=== PATIENT | male | born 1945 | race Caucasian/White ===

== ENCOUNTER → 2016-12-21 | Outpatient (CLI) | payer OTHER ==
[2013-12-14 10:19] VITALS: BP 146/73
[2016-12-21 05:39] LABS: HEMOGLOBIN A1C 7.5 % (4.5-6.2)
[2016-12-21 05:52] LABS: ALBUMIN 3.6 g/dL (3.4-5.0); BILIRUBIN,DIRECT 0.11 mg/dL (0-0.2); CALCIUM 9.6 mg/dL (8.5-10.1); CARBON DIOXIDE 29.4 mmol/L (21-32); CHOL/HDL RATIO 3.5 (0.0-5.0); CREATININE 1.86 mg/dL (0.70-1.30); PHOSPHORUS 3.4 mg/dL (2.6-4.7); T4 (THYROXINE) 9.7 ug/dL (4.7-13.3); TOTAL PROTEIN 6.8 g/dL (6.4-8.2); TOTAL PSA 1.38 ng/mL (0.13-4.0); TSH (3RD GENERATION) 4.153 uIU/mL (0.358-3.74)
[2016-12-21 06:15] LABS: BASOPHILS % (AUTO) 0.7 % (0.2-1.0); EOSINOPHILS % (AUTO) 0.8 % (0.9-2.9); HEMATOCRIT 41.4 % (42.0-54.0); HEMOGLOBIN 13.8 g/dL (13.5-18.0); LYMPHOCYTES # (AUTO) 1.3 X10^3/uL (1.3-2.9); LYMPHOCYTES % (AUTO) 22.1 % (21.0-51.0); MEAN CORPUSCULAR HEMOGLOBIN 28.4 pg (27.0-34.0); MEAN CORPUSCULAR HGB CONC 33.5 g/dL (33.0-35.0); MEAN CORPUSCULAR VOLUME 84.8 fL (80.0-100.0); MEAN PLATELET VOLUME 8.2 fL (7.4-11.0); MONOCYTES # (AUTO) 0.4 x10^3/uL (0.3-0.8); MONOCYTES % (AUTO) 7.5 % (0.0-13.0); NEUTROPHILS # (AUTO) 3.9 x10^3/uL (2.2-4.8); NEUTROPHILS % (AUTO) 68.9 % (42.0-75.0); PLATELET COUNT 152 X10^3/uL (150.0-450.0); RED BLOOD COUNT 4.87 X10^6/uL (4.7-6.0); RED CELL DISTRIBUTION WIDTH 15.3 % (11.6-16.5); WHITE BLOOD COUNT 5.7 X10^3/uL (3.6-10.0)
== END ==
LOC: LAB 04:39
PROVIDERS: ATTEND Internal Medicine
DX: I25.10 Atherosclerotic heart disease of native coronary artery without angina pectoris (principal); Z79.01 Long term (current) use of anticoagulants; Z79.899 Other long term (current) drug therapy; N18.3 Chronic kidney disease, stage 3 (moderate); Z94.0 Kidney transplant status; E11.9 Type 2 diabetes mellitus without complications; I10 Essential (primary) hypertension; E03.8 Other specified hypothyroidism; Z12.5 Encounter for screening for malignant neoplasm of prostate; R39.15 Urgency of urination
CPT/HCPCS: 36415; 80048; 80061; 80076; 80197; 83036; 84100; 84153; 84436; 84443; 85025

== ENCOUNTER → 2017-04-07 | Outpatient (CLI) | payer OTHER ==
[2013-12-14 10:19] VITALS: BP 146/73
[2017-04-07 06:21] LABS: BASOPHILS % (AUTO) 0.4 % (0.2-1.0); EOSINOPHILS # (AUTO) 0.1 x10^3/uL (0.0-0.2); HEMATOCRIT 36.5 % (42.0-54.0); HEMOGLOBIN 12.6 g/dL (13.5-18.0); LYMPHOCYTES # (AUTO) 1.1 X10^3/uL (1.3-2.9); LYMPHOCYTES % (AUTO) 19.4 % (21.0-51.0); MEAN CORPUSCULAR HEMOGLOBIN 29.2 pg (27.0-34.0); MEAN CORPUSCULAR HGB CONC 34.5 g/dL (33.0-35.0); MEAN CORPUSCULAR VOLUME 84.6 fL (80.0-100.0); MEAN PLATELET VOLUME 8.1 fL (7.4-11.0); MONOCYTES # (AUTO) 0.4 x10^3/uL (0.3-0.8); MONOCYTES % (AUTO) 7.4 % (0.0-13.0); NEUTROPHILS # (AUTO) 4.2 x10^3/uL (2.2-4.8); NEUTROPHILS % (AUTO) 71.8 % (42.0-75.0); PLATELET COUNT 187 X10^3/uL (150.0-450.0); RED BLOOD COUNT 4.31 X10^6/uL (4.7-6.0); RED CELL DISTRIBUTION WIDTH 14.8 % (11.6-16.5); WHITE BLOOD COUNT 5.9 X10^3/uL (3.6-10.0)
[2017-04-07 06:35] LABS: ALBUMIN 3.2 g/dL (3.4-5.0); BLOOD UREA NITROGEN 22 mg/dL (7-18); CALCIUM 9.4 mg/dL (8.5-10.1); CHLORIDE 109 mmol/L (98-107); CREATININE 1.92 mg/dL (0.70-1.30); PHOSPHORUS 2.7 mg/dL (2.6-4.7); SODIUM 144 mmol/L (136-145); URIC ACID 6.8 mg/dL (3.5-7.2); eGFR BLACK RACES 44 (>60); eGFR NON BLACK RACES 37 (>60)
[2017-04-07 06:40] LABS: HEMOGLOBIN A1C 7.1 % (4.5-6.2)
[2017-04-08 12:05] LABS: ALBUMIN 3.5 g/dL (3.4-5.0); BILIRUBIN,DIRECT 0.1 mg/dL (0-0.2); CHOL/HDL RATIO 3.8 (0.0-5.0); TOTAL PROTEIN 6.3 g/dL (6.4-8.2)
== END ==
LOC: LAB 04:43
PROVIDERS: ATTEND Internal Medicine
DX: I12.9 Hypertensive chronic kidney disease with stage 1 through stage 4 chronic kidney disease, or unspecified chronic kidney disease (principal); N18.3 Chronic kidney disease, stage 3 (moderate); E11.9 Type 2 diabetes mellitus without complications
CPT/HCPCS: 36415; 80061; 80069; 80076; 80197; 83036; 84550; 85025

== ENCOUNTER → 2017-07-29 | Outpatient (CLI) | payer OTHER ==
[2013-12-14 10:19] VITALS: BP 146/73
[2017-07-29 06:22] LABS: BASOPHILS % (AUTO) 0.7 % (0.2-1.0); EOSINOPHILS # (AUTO) 0.1 x10^3/uL (0.0-0.2); EOSINOPHILS % (AUTO) 1.3 % (0.9-2.9); HEMATOCRIT 41.5 % (42.0-54.0); LYMPHOCYTES # (AUTO) 1.2 X10^3/uL (1.3-2.9); LYMPHOCYTES % (AUTO) 21.7 % (21.0-51.0); MEAN CORPUSCULAR HEMOGLOBIN 28.6 pg (27.0-34.0); MEAN CORPUSCULAR HGB CONC 33.6 g/dL (33.0-35.0); MEAN PLATELET VOLUME 8.3 fL (7.4-11.0); MONOCYTES # (AUTO) 0.4 x10^3/uL (0.3-0.8); MONOCYTES % (AUTO) 7.7 % (0.0-13.0); NEUTROPHILS # (AUTO) 3.7 x10^3/uL (2.2-4.8); NEUTROPHILS % (AUTO) 68.6 % (42.0-75.0); PLATELET COUNT 176 X10^3/uL (150.0-450.0); RED BLOOD COUNT 4.89 X10^6/uL (4.7-6.0); RED CELL DISTRIBUTION WIDTH 16.1 % (11.6-16.5); WHITE BLOOD COUNT 5.4 X10^3/uL (3.6-10.0)
[2017-07-29 06:24] LABS: HEMOGLOBIN A1C 7.2 % (4.5-6.2)
[2017-07-29 06:29] LABS: ALANINE AMINOTRANSFERASE 87 Units/L (12-78); ALBUMIN 3.4 g/dL (3.4-5.0); ALKALINE PHOSPHATASE 101 Units/L (46-116); ASPARTATE AMINO TRANSFERASE 32 Units/L (15-37); BLOOD UREA NITROGEN 30 mg/dL (7-18); CALCIUM 9.5 mg/dL (8.5-10.1); CARBON DIOXIDE 29.4 mmol/L (21-32); CHLORIDE 106 mmol/L (98-107); CHOL/HDL RATIO 3.4 (0.0-5.0); CHOLESTEROL 175 mg/dL (0-200); CREATININE 1.75 mg/dL (0.70-1.30); HDL CHOLESTEROL 52 mg/dL (40-60); PHOSPHORUS 3.4 mg/dL (2.6-4.7); SODIUM 143 mmol/L (136-145); TOTAL PROTEIN 6.7 g/dL (6.4-8.2); TRIGLYCERIDES 75 mg/dL (0-150); URIC ACID 5.7 mg/dL (3.5-7.2); eGFR BLACK RACES 49 (>60); eGFR NON BLACK RACES 41 (>60)
== END ==
LOC: LAB 05:18
PROVIDERS: ATTEND Specialist
DX: Z79.899 Other long term (current) drug therapy (principal); E78.2 Mixed hyperlipidemia; E11.29 Type 2 diabetes mellitus with other diabetic kidney complication; Z94.4 Liver transplant status; N18.3 Chronic kidney disease, stage 3 (moderate)
CPT/HCPCS: 36415; 80061; 80069; 80076; 80197; 83036; 84550; 85025

== ENCOUNTER 2017-08-29 04:29 | Inpatient (IN) | payer OTHER ==
[2017-08-29] MEDS ORDERED: NS 1000 ML 1,000 ML ONE (04:59)
[2017-08-29] MEDS ORDERED: ZOFRAN INJ 4 MG VIAL IVP ONE (04:59)
[2017-08-29] MEDS ORDERED: OFIRMEV IV 1000 MG VIAL 750 MG/75 ML VIAL IV PRN (05:01)
[2017-08-29] MEDS ORDERED: DUONEB 0.5 MG/3 MG NEB ONE (05:08)
[2017-08-29] MEDS ORDERED: DECADRON JET NEB (RESP USE) NEB ONE (05:08)
--- NOTE | 2017-08-29 05:09 | DR.GENAD ---
HPI - PCP Primary Care Physician: jeanie - Complaint/Symptoms Chief Complaint Doctors Comments: Patient presented to the ED with complaint of breathing problems. He states that the onset was this AM when he felt that he could not breath. Yesterday he had chest pain that continued throughout the day. He is not on any cardiac medication. 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 He denies having COPD and does not use oxygen. He admits to a heart attack about fifteen years ago with bypass surgery and sees the palliative care nurse practitioner yearly. He sleeps on two pillows, denies orthopnea or PND. His medication of coreg. VS 101.7 p120,r28 po 94% 146/75. Chief Complaint:: pt states"I THINK I HAVE A COLD I CAN'T BREATHE" - Source History Provided: Patient - Mode of Arrival Mode of Arrival: Ambulatory - Timing Onset of Chief Complaint: 08/29/17 PMH - PMH Past Medical History: Yes Past Medical History: CHF, Coronary Artery Disease, Hypertension, HI, Renal Disease Past Surgical History: Yes Surgical History: CABG/Valve Surgery, Organ Transplant Past Surgical History Comment: KIDNEY TRANSPLANT 12 YEARS AGO - Family History History of Family Medical Conditions: Yes Family Medical History: Diabetes Mellitus, Cancer, [place], Hypertension - Social History Lives Where: Home - infectious screening In the last 2 months have you had wt loss of >10#?: NO Have you had fever, night sweats or hemotysis?: No Have you traveled outside the country in the last 6 months?: No Isolation: Standard ROS - Review of Systems Constitutional: Fever. negative: Diaphoresis Eyes: No Symptoms Reported ENTM: No Symptoms Reported Respiratoy: No Symptoms Reported, Wheezing (posterior upper lobes) Cardiovascular: Other (tachycardia) Gastrointestinal/Abdominal: No Symptoms Reported Genitourinary: No Symptoms Reported Neurological: No Symptoms Reported Musculoskeletal: No Symptoms Reported Integumentary: No Symptoms Reported Hematologic/Lymphatic: No Symptoms Reported Endocrine: No Symptoms Reported Psychiatric: No Symptoms Reported All Other Systems: Reviewed and Negative PE - Vital Signs Vitals: Temperature 101.7 F Pulse Rate [Apical] 127 Pulse Rate 135 Respiratory Rate 31 Blood Pressure [Right Arm] 120/76 Blood Pressure [Left Arm] 146/73 Blood Pressure 146/75 O2 Sat by Pulse Oximetry 98 - General Limitations: No Limitations General Appearance: Alert - Head Head Exam: Normal Inspection, Atraumatic - Eyes Eye exam: Normal Appearance, PERRL, EOMI - ENT ENT Exam: Normal Exam External Ear Exam: Normal External Inspection TM/Canal Exam: Bilateral Normal Nose Exam: Normal Nose Exam Mouth Exam: Normal Inspection Throat Exam: Normal Inspection - Neck Neck Exam: Normal Inspection - Chest Chest Inspection: Normal Inspection - Respiratory Respiratory Exam: Prolonged Expiratory Phase Respiratory Exam: Bilateral Wheezing (bilateral upper) - Cardiovascular Cardiovascular Exam: Tachycardia - Abdominal Exam Abdominal Exam: Normal Inspection Abdominal Tenderness: negative: RUQ, RLQ, LUQ, LLQ, Epigastrium, Suprapubic, Diffuse, Mild, Moderate, Severe, Other - Extremities Extremities Exam: Normal Inspection. negative: Edema - Back Back Exam: Normal Inspection - Neurologic Neurological Exam: Alert, Oriented X3, CN II-XII Intact - Psychiatric Psychiatric Exam: Normal Affect - Skin Skin Exam: Warm, Dry - Other Exam Other Exam: wnl Course - Consultation Called: 15:00 (Dr Hernadez agreed to admit for further evaluation) ROR - Labs Reviewed Result Diagrams: 08/29/17 05:05 08/29/17 05:05 Laboratory: WBC 8.4 X10^3/uL (3.6-10.0) 08/29/17 05:05 RBC 4.99 X10^6/uL (4.7-6.0) 08/29/17 05:05 Hgb 13.8 g/dL (13.5-18.0) 08/29/17 05:05 Hct 42.0 % (42.0-54.0) 08/29/17 05:05 MCV 84.1 fL (80.0-100.0) 08/29/17 05:05 MCH 27.7 pg (27.0-34.0) 08/29/17 05:05 MCHC 32.9 g/dL (33.0-35.0) L 08/29/17 05:05 RDW 15.7 % (11.6-16.5) 08/29/17 05:05 Plt Count 152 X10^3/uL (150.0-450.0) 08/29/17 05:05 MPV 8.4 fL (7.4-11.0) 08/29/17 05:05 Neut % 83.7 % (42.0-75.0) H 08/29/17 05:05 Lymph % 9.3 % (21.0-51.0) L 08/29/17 05:05 Angelina % 5.3 % (0.0-13.0) 08/29/17 05:05 Eos % 0.8 % (0.9-2.9) L 08/29/17 05:05 Baso % 0.9 % (0.2-1.0) 08/29/17 05:05 Neut # 7.0 x10^3/uL (2.2-4.8) H 08/29/17 05:05 Lymph # 0.8 X10^3/uL (1.3-2.9) L 08/29/17 05:05 Angelina # 0.4 x10^3/uL (0.3-0.8) 08/29/17 05:05 Eos # 0.1 x10^3/uL (0.0-0.2) 08/29/17 05:05 Baso # 0.1 X10^3/uL (0.0-0.1) 08/29/17 05:05 Absolute Nucleated RBC 0.1 /100WBC 08/29/17 05:05 INR Target Range - 08/29/17 05:05 INR 2.56 (0.8-1.3) H 08/29/17 05:05 PTT 41.9 SECONDS (22.9-36.5) H 08/29/17 05:05 PTT Comment - 08/29/17 05:05 D-Dimer 107 ng/mL (0-400) 08/29/17 05:05 Sample Site Rr 08/29/17 05:46 ABG pH 7.420 (7.35-7.45) 08/29/17 05:46 ABG pCO2 39.0 mmHg (35.0-45.0) 08/29/17 05:46 ABG pO2 64.0 mmHg (80.0-100.0) L 08/29/17 05:46 ABG HCO3 25.3 mmol/L (22-26) 08/29/17 05:46 ABG O2 Saturation 92.0 % (90-100) 08/29/17 05:46 ABG Base Excess 0.8 mmol/L (-2.0-2.0) 08/29/17 05:46 Venu Test Pos 08/29/17 05:46 A-a Gradient 87.0 mmHg 08/29/17 05:46 FiO2 28.000 08/29/17 05:46 Blood Gas Comments Toyin well ae 08/29/17 05:46 Sodium 139 mmol/L (136-145) 08/29/17 05:05 Corrected Sodium TNP 08/29/17 05:05 Potassium 4.1 mmol/L (3.5-5.1) 08/29/17 05:05 Chloride 103 mmol/L (98-107) 08/29/17 05:05 Carbon Dioxide 23.6 mmol/L (21-32) 08/29/17 05:05 BUN 26 mg/dL (7-18) H 08/29/17 05:05 Creatinine 1.73 mg/dL (0.70-1.30) H 08/29/17 05:05 Est GFR (MDRD) Af Amer 50 (>60) L 08/29/17 05:05 Est GFR (MDRD) Non-Af 41 (>60) L 08/29/17 05:05 Glucose 109 mg/dL (65-99) H 08/29/17 05:05 Calcium 9.1 mg/dL (8.5-10.1) 08/29/17 05:05 Corrected Calcium TNP 08/29/17 05:05 Magnesium 1.5 mg/dL (1.7-2.9) L 08/29/17 05:05 Total Bilirubin 0.70 mg/dL (0.2-1.0) 08/29/17 05:05 AST 27 Units/L (15-37) 08/29/17 05:05 ALT 65 Units/L (12-78) 08/29/17 05:05 Alkaline Phosphatase 90 Units/L (46-116) 08/29/17 05:05 Creatine Kinase 120 Units/L (39-308) 08/29/17 05:05 CK-MB (CK-2) 1.6 ng/mL (0-4.0) 08/29/17 05:05 CK/CKMB % Calc 1.3 % (<4) 08/29/17 05:05 Troponin I 0.04 ng/mL (0-1.5) 08/29/17 05:05 B-Natriuretic Peptide 920 pg/mL (0-79) H* 08/29/17 05:05 Total Protein 6.9 g/dL (6.4-8.2) 08/29/17 05:05 Albumin 3.5 g/dL (3.4-5.0) 08/29/17 05:05 Globulin 3.4 g/dL (2.5-4.5) 08/29/17 05:05 Albumin/Globulin Ratio 1.0 Ratio (1.1-2.1) L 08/29/17 05:05 Influenza Type A (PCR) Positive (NEGATIVE) A 08/29/17 05:23 Influenza Type B (PCR) Negative (NEGATIVE) 08/29/17 05:23 - XRAY XRAY Interpreted by: Radiologist (Chest: cardiomegaly and borderline edema suggesting CHF.) - Diagnosis Discharge Problem: Influenza A, r/o pneumonia, Influenza with respiratory manifestation other than pneumonia A-fib Qualifiers: Atrial fibrillation type: unspecified Qualified Code(s): I48.91 - Unspecified atrial fibrillation - Discharge Plan Condition: Stable - Follow ups/Referrals Follow ups/Referrals: NFD,None [Primary Care Provider] - 3 days - Instructions
[2017-08-29] MEDS ORDERED: ZOFRAN INJ 4 MG VIAL ONE (05:10)
--- NOTE | 2017-08-29 05:13 | RAD ---
Chest AP portable Indication: Dyspnea. Comparison: 12/14/2013 Findings: There is sternotomy change with cardiomegaly. Valve replacement change noted. Increased int erstitial markings noted. No pneumothorax, effusion or dense consolidation seen. Monitoring leads obs cure mild detail. Impression: Cardiomegaly and borderline edema suggesting CHF Reported By:
[2017-08-29 05:25] LABS: BASOPHILS # (AUTO) 0.1 X10^3/uL (0.0-0.1); BASOPHILS % (AUTO) 0.9 % (0.2-1.0); EOSINOPHILS # (AUTO) 0.1 x10^3/uL (0.0-0.2); EOSINOPHILS % (AUTO) 0.8 % (0.9-2.9); HEMOGLOBIN 13.8 g/dL (13.5-18.0); LYMPHOCYTES # (AUTO) 0.8 X10^3/uL (1.3-2.9); LYMPHOCYTES % (AUTO) 9.3 % (21.0-51.0); MEAN CORPUSCULAR HEMOGLOBIN 27.7 pg (27.0-34.0); MEAN CORPUSCULAR HGB CONC 32.9 g/dL (33.0-35.0); MEAN CORPUSCULAR VOLUME 84.1 fL (80.0-100.0); MEAN PLATELET VOLUME 8.4 fL (7.4-11.0); MONOCYTES # (AUTO) 0.4 x10^3/uL (0.3-0.8); MONOCYTES % (AUTO) 5.3 % (0.0-13.0); NEUTROPHILS % (AUTO) 83.7 % (42.0-75.0); PLATELET COUNT 152 X10^3/uL (150.0-450.0); RED BLOOD COUNT 4.99 X10^6/uL (4.7-6.0); RED CELL DISTRIBUTION WIDTH 15.7 % (11.6-16.5); WHITE BLOOD COUNT 8.4 X10^3/uL (3.6-10.0)
[2017-08-29] MEDS ORDERED: LASIX IVP ONE ×2 (05:39→05:44)
[2017-08-29 05:42] LABS: BLOOD UREA NITROGEN 26 mg/dL (7-18); CALCIUM 9.1 mg/dL (8.5-10.1); CARBON DIOXIDE 23.6 mmol/L (21-32); CHLORIDE 103 mmol/L (98-107); CREATININE 1.73 mg/dL (0.70-1.30); SODIUM 139 mmol/L (136-145); TROPONIN I 0.04 ng/mL (0-1.5); eGFR BLACK RACES 50 (>60); eGFR NON BLACK RACES 41 (>60)
[2017-08-29 05:47] LABS: ALANINE AMINOTRANSFERASE 65 Units/L (12-78); ALBUMIN 3.5 g/dL (3.4-5.0); ALKALINE PHOSPHATASE 90 Units/L (46-116); ASPARTATE AMINO TRANSFERASE 27 Units/L (15-37); CKMB % 1.3 % (<4); CREATINE KINASE 120 Units/L (39-308); CREATINE KINASE MB 1.6 ng/mL (0-4.0); MAGNESIUM 1.5 mg/dL (1.7-2.9); TOTAL PROTEIN 6.9 g/dL (6.4-8.2)
[2017-08-29] MEDS ORDERED: NS 1000 ML 1,000 ML IV SCH (06:00)
[2017-08-29 06:02] LABS: B-TYPE NATRIURETIC PEPTIDE 920 pg/mL (0-79)
[2017-08-29 06:05] LABS: ABG ALLEN TEST POS; ABG BASE EXCESS 0.8 mmol/L (-2.0-2.0); ABG HCO3 25.3 mmol/L (22-26)
[2017-08-29] MEDS ORDERED: TAMIFLU PO ONE ×2 (06:10)
[2017-08-29] MEDS ORDERED: LEVAQUIN PREMIX IV 750 MG 750 MG/150 ML BAG IV SCH (07:00)
[2017-08-29] MEDS ORDERED: TAMIFLU PO SCH ×2 (07:00)
[2017-08-29] MEDS: DUONEB 0.5 MG/3 MG NEB SCH ×5 (07:12→21:20)
[2017-08-29] MEDS: NS 1000 ML 1,000 ML IV SCH ×2 (07:52→20:15)
[2017-08-29 10:13] LABS: BILIRUBIN,URINE NEGATIVE (NEGATIVE); BLOOD/HEMOGLOBIN,URINE NEGATIVE (NEGATIVE); GLUCOSE, URINE NEGATIVE (NEGATIVE); KETONES,URINE NEGATIVE (NEGATIVE); LEUKOCYTE ESTERASE ,URINE 1+ (NEGATIVE); NITRITES,URINE NEGATIVE (NEGATIVE); PROTEIN,URINE NEGATIVE (NEGATIVE); UROBILINOGEN,URINE NORMAL (NORMAL)
[2017-08-29 10:30] LABS: AMORPHOUS SEDIMENT,UR TRACE /HPF (NEGATIVE); APPEARANCE,URINE CLEAR (CLEAR); BACTERIA,URINE NEGATIVE /HPF (NEGATIVE); COLOR,URINE YELLOW (YELLOW); RBC,URINE NONE SEEN /HPF (NEGATIVE); SQUAMOUS EPITHELIAL CELL,UR RARE /HPF (NEGATIVE)
[2017-08-29 10:31] LABS: HYALINE CASTS, URINE RARE /LPF (NEGATIVE)
[2017-08-29 15:29] VITALS: BMI 31.2
[2017-08-30 06:07] LABS: ALBUMIN 2.9 g/dL (3.4-5.0); CALCIUM 8.6 mg/dL (8.5-10.1); CARBON DIOXIDE 24.5 mmol/L (21-32); COR CA(FOR HYPOALB) 9.5 mg/dL (8.5-10.1); CREATININE 1.89 mg/dL (0.70-1.30)
[2017-08-30 06:19] LABS: BASOPHILS % (AUTO) 0.4 % (0.2-1.0); EOSINOPHILS % (AUTO) 0.5 % (0.9-2.9); HEMATOCRIT 36.4 % (42.0-54.0); HEMOGLOBIN 12.2 g/dL (13.5-18.0); LYMPHOCYTES # (AUTO) 0.6 X10^3/uL (1.3-2.9); LYMPHOCYTES % (AUTO) 13.1 % (21.0-51.0); MEAN CORPUSCULAR HEMOGLOBIN 28.2 pg (27.0-34.0); MEAN CORPUSCULAR HGB CONC 33.4 g/dL (33.0-35.0); MEAN CORPUSCULAR VOLUME 84.4 fL (80.0-100.0); MEAN PLATELET VOLUME 8.6 fL (7.4-11.0); MONOCYTES # (AUTO) 0.4 x10^3/uL (0.3-0.8); MONOCYTES % (AUTO) 8.7 % (0.0-13.0); NEUTROPHILS # (AUTO) 3.5 x10^3/uL (2.2-4.8); NEUTROPHILS % (AUTO) 77.3 % (42.0-75.0); PLATELET COUNT 119 X10^3/uL (150.0-450.0); RED BLOOD COUNT 4.31 X10^6/uL (4.7-6.0); RED CELL DISTRIBUTION WIDTH 16.1 % (11.6-16.5); WHITE BLOOD COUNT 4.5 X10^3/uL (3.6-10.0)
--- NOTE | 2017-08-30 07:19 | RAD ---
History: Shortness of breath Study: Chest one view Findings: AP upright chest view shows the cardiac silhouette to be enlarged. The pulmonary vasculatur e is mildly congested. No pneumonia is seen. Minimal blunting of the left costophrenic angle is seen suggestive of a small amount of left pleural fluid. Postop changes of median sternotomy with probable mitral valve replacement are seen. Impression: 1. Cardiomegaly with mild vascular congestion and what appears to be a small left pleural effusion. 2. No pneumonia is seen. Reported By:
[2017-08-30] MEDS: CLARITIN PO SCH (08:43)
[2017-08-30] MEDS: TOUJEO SOLOSTAR PEN SC SCH (08:43)
[2017-08-30] MEDS: TAMIFLU PO SCH (08:44)
[2017-08-30] MEDS: TACROLIMUS 0.5 MG PO SCH ×2 (08:44→21:15)
[2017-08-30] MEDS: SYNTHROID 100 mcg TAB PO SCH (08:44)
[2017-08-30] MEDS: PREDNISONE TAB 10 MG PO SCH (08:45)
[2017-08-30] MEDS: COREG TAB 25 MG PO SCH ×2 (08:45→21:13)
[2017-08-30] MEDS: NORVASC TAB 5 MG PO SCH (08:45)
[2017-08-30] MEDS: DUONEB 0.5 MG/3 MG NEB SCH ×4 (09:00→21:25)
[2017-08-30] MEDS: NS 1000 ML 1,000 ML IV SCH ×2 (09:05→21:20)
[2017-08-30] MEDS: HumuLIN R SUBCUT PRN ×3 (11:43→21:16)
--- NOTE | 2017-08-30 16:58 | DR.H&P ---
H&P - History & Physical for Day of: H&P Date: 08/29/17 - Chief Complaint Chief Complaint: short of breath, fever - Allergies Allergies/Adverse Reactions: Allergies Allergy/AdvReac Type Severity Reaction Status Date / Time codeine Allergy Verified 08/29/17 04:31 - History of Present Illness History of Present Illness: is a 72 year old patient of ours who presented to the emergency room with reports of shortness of breath and fever. Patient reports chest pain which started yesterday with onset of shortness of breath this morning. He admits to a CA fifteen years ago with bypass surgery. He reports that he follows up with his biostatistics professor yearly. He also denies COPD or use of oxygen. Medical history includes: CHF, CAD, DM, Dyslipidemia, Hypertension, Hypothyroidism, CA, renal disease with transplant. On examination , he is noted to be tachycardic with HR in the 120s. Bilateral lungs are noted with wheezing to the upper lobes. Abdomen is round, soft, and non-tender with normal bowel sounds noted in all quadrants. There is normal range of motion noted to all extremities. On arrival, vitals were 101.7, 120, 28, 94% RA, 146/ 75. Labs were obtained. Abnormal lab values include the following: MCHC 32.9, INR 2.56, PTT 41.9, BUN 26, Creatinine 1.73, GFR af 51, GFR non 41, Glucose 109 , Magnesium 1.5, BNP 920, A/G Ratio 1.0, Influenza A Positive. Blood Cultures x2 Pending. ABG: pO2 64.0, otherwise normal. EKG reported: Atrial Fibrillation with heart [id number]. Chest X-Ray reported: Cardiomegaly and borderline edema suggesting CHF. He was given Lasix 40mg IV x 1, duoneb with decadron, Zofran 4mg iv x 1. Only slight improvement in symptoms was noted. We admitted patient for further treatment and evaluation. We plan to follow up with AM labs and continue to monitor patient. - Past Medical History Past Medical History: CHF, Coronary Artery Disease, Hypertension, CA, Renal Disease - Past Surgical History Surgical History: CABG/Valve Surgery, Organ Transplant, Other - Family History Family Medical History: CA - Social History Alcohol Use: None Drug Use: None - Medications Home Medications: Amlodipine Besylate [NORVASC 5 MG *] 5 mg PO DAILY 02/05/18 [History Confirmed 08/29/17] Carvedilol [Coreg Tab 25 mg] 25 mg PO BID 08/29/17 [History Confirmed 08/29/17] Insulin Aspart [NovoLog insulin 10 mL vial] 2 - 14 unit SC PRN PRN 08/29/17 [ History Confirmed 08/29/17] Insulin Glargine (Toujeo) [Toujeo Solostar Pen] 40 units SC QAM 08/29/17 [ History Confirmed 08/29/17] Levothyroxine Sodium 100 mcg PO DAILY 08/29/17 [History Confirmed 08/29/17] Loratadine 10 mg 24-Hr Tab [LORATADINE 10 MG *] 10 mg PO DAILY 08/29/17 [ History Confirmed 08/29/17] Pravastatin Sodium [Pravachol] 80 mg PO HS 08/29/17 [History Confirmed 08/29/17] Prednisone [Prednisone Tab 10 mg] 10 mg PO DAILY 08/29/17 [History Confirmed 12/09] Tacrolimus [Prograf] 0.5 mg PO BID 08/29/17 [History Confirmed 08/29/17] Warfarin Sodium 5 mg PO HS 08/29/17 [History Confirmed 08/29/17] - Review of Systems Constitutional: Fever, Weakness Eyes: No Symptoms Reported. denies: See HPI, Pain, Vision Change, Conjunctivae Inflammation, Eyelid Inflammation, Redness, Other ENT: Nose Congestion Respiratory: Cough, Shortness of Breath, Wheezing Cardiovascular: No Symptoms Reported. denies: Chest Pain, See HPI, Palpitations , Orthopnea, Paroxysmal Noc. Dyspnea, Edema, Light Headedness, Other Gastrointestinal: No Symptoms Reported. denies: See HPI, Nausea, Vomiting, Abdominal Pain, Diarrhea, Constipation, Melena, Hematochezia, Other Genitourinary: No Symptoms Reported. denies: See HPI, Dysuria, Frequency, Incontinence, Hematuria, Retention, Other Musculoskeletal: No Symptoms Reported. denies: See HPI, Shoulder Pain, Arm Pain , Back Pain, Hand Pain, Leg Pain, Foot Pain, Neck Pain, Other Skin: No Symptoms Reported. denies: See HPI, Rash, Lesions, Jaundice, Bruising , Wound, Ecchymosis, Other Neurological: Weakness - Physical Exam Vital Signs: Temperature 98.3 F Pulse Rate [Apical] 109 Pulse Rate 98 Respiratory Rate 20 Blood Pressure [Right Arm] 118/72 Blood Pressure [Left Arm] 143/70 Blood Pressure 146/75 O2 Sat by Pulse Oximetry 97 Oriented: Normal Eyes: Normal. negative: Blurred Vision, Diplopia, Discharge, Pain, Redness, Photophobia, Other Ear: Normal. negative: Right, Left, Swelling, Ecchymosis, Hemotypanum, Abrasion , Laceration Nose: Other (nasal congestion) Throat: Normal Respiratory: Wheezes Throughout Cardiovascular: Tachycardia : Normal Auscultation: Bowel Sounds: Normal Palpation: Normal Tenderness: Normal Skin: Normal Musculoskeletal: Normal Psychiatric: Normal Mood Description: Calm Affect: Normal Speech Pattern: Clear - Assessment/Plan (1) Influenza A Status: Acute Plan: tamiflu 75mg po bid, continue to montior (2) Dehydration Status: Acute Plan: normal saline at 80ml/hr, continue to monitor (3) Bronchitis Status: Acute Plan: levaquin 750mg iv q48h, respiratory treatments, continue to monitor
[2017-08-30] MEDS ORDERED: SNACK - Diabetic Appropriate PO SCH (20:00)
[2017-08-30] MEDS ORDERED: PRAVACHOL PO SCH (21:00)
[2017-08-30] MEDS ORDERED: COUMADIN TAB 5 MG PO SCH (21:00)
[2017-08-31 06:16] LABS: EOSINOPHILS # (AUTO) 0.1 x10^3/uL (0.0-0.2); EOSINOPHILS % (AUTO) 2.2 % (0.9-2.9); HEMATOCRIT 37.2 % (42.0-54.0); HEMOGLOBIN 12.5 g/dL (13.5-18.0); LYMPHOCYTES # (AUTO) 0.9 X10^3/uL (1.3-2.9); LYMPHOCYTES % (AUTO) 18.2 % (21.0-51.0); MEAN CORPUSCULAR HEMOGLOBIN 27.8 pg (27.0-34.0); MEAN CORPUSCULAR HGB CONC 33.5 g/dL (33.0-35.0); MEAN CORPUSCULAR VOLUME 82.8 fL (80.0-100.0); MEAN PLATELET VOLUME 8.2 fL (7.4-11.0); MONOCYTES # (AUTO) 0.5 x10^3/uL (0.3-0.8); MONOCYTES % (AUTO) 9.6 % (0.0-13.0); NEUTROPHILS # (AUTO) 3.4 x10^3/uL (2.2-4.8); PLATELET COUNT 138 X10^3/uL (150.0-450.0); RED BLOOD COUNT 4.49 X10^6/uL (4.7-6.0); RED CELL DISTRIBUTION WIDTH 15.7 % (11.6-16.5)
[2017-08-31 06:34] LABS: ALANINE AMINOTRANSFERASE 47 Units/L (12-78); ALKALINE PHOSPHATASE 69 Units/L (46-116); ASPARTATE AMINO TRANSFERASE 19 Units/L (15-37); BLOOD UREA NITROGEN 33 mg/dL (7-18); CALCIUM 8.8 mg/dL (8.5-10.1); CARBON DIOXIDE 22.2 mmol/L (21-32); CHLORIDE 107 mmol/L (98-107); COR CA(FOR HYPOALB) 9.6 mg/dL (8.5-10.1); CREATININE 1.73 mg/dL (0.70-1.30); SODIUM 138 mmol/L (136-145); TOTAL PROTEIN 6.3 g/dL (6.4-8.2); eGFR BLACK RACES 50 (>60); eGFR NON BLACK RACES 41 (>60)
--- NOTE | 2017-08-31 07:31 | RAD ---
History: Shortness of breath Study: Chest one view, comparison 08/30/2017 Findings: AP upright chest shows the cardiac silhouette to be rib enlarged. The pulmonary vasculature remains congested. There is a slight increase in the interstitial markings unchanged. No consolidati ve pneumonia is seen. Postoperative changes of what appears to be mitral valve replacement are seen. Impression: 1. Cardiomegaly with mild vascular congestion. 2. No consolidation is evident. No obvious pleural effusion is seen today. Reported By:
[2017-08-31 08:48] VITALS: BP 128/69
[2017-08-31] MEDS: PREDNISONE TAB 10 MG PO SCH (08:53)
[2017-08-31] MEDS: CLARITIN PO SCH (08:53)
[2017-08-31] MEDS: NORVASC TAB 5 MG PO SCH (08:54)
[2017-08-31] MEDS: SYNTHROID 100 mcg TAB PO SCH (08:54)
[2017-08-31] MEDS: TAMIFLU PO SCH (08:54)
[2017-08-31] MEDS: COREG TAB 25 MG PO SCH (08:54)
[2017-08-31] MEDS: TACROLIMUS 0.5 MG PO SCH (08:56)
[2017-08-31] MEDS ORDERED: LEVAQUIN PREMIX IV 750 MG 750 MG/150 ML BAG IV SCH (09:00)
[2017-08-31] MEDS: DUONEB 0.5 MG/3 MG NEB SCH (09:12)
[2017-08-31] MEDS: TOUJEO SOLOSTAR PEN SC SCH (09:31)
[2017-08-31] MEDS: NS 1000 ML 1,000 ML IV SCH (11:31)
--- NOTE | 2017-08-31 11:58 | PCM.PROG ---
Progress Note - Progress Note for Day of Date: 08/30/17 - Past Medical Family Social History Past Med/Fam/Surg Hx: No changes since H&P Allergies: Allergies codeine Allergy (Verified 08/29/17 04:31) - Review of Systems ROS: No change since H&P - Vital Signs and I&O's Vital Signs: Temperature 98 F Pulse Rate [Apical] 72 Pulse Rate 85 Respiratory Rate 20 Blood Pressure [Right Arm] 128/69 Blood Pressure [Left Arm] 143/70 Blood Pressure 146/75 O2 Sat by Pulse Oximetry 97 Intake and Output: Intake & Output 08/28/17 08/29/17 08/30/17 08/31/17 11:59 11:59 11:59 11:59 Intake Total 2320 4898 Output Total 2125 Balance 195 4898 - Physical Exam Oriented: Normal Eyes: Normal. negative: Blurred Vision, Diplopia, Discharge, Pain, Redness, Photophobia, Other Ear: Normal. negative: Right, Left, Swelling, Ecchymosis, Hemotypanum, Abrasion , Laceration Nose: Other (nasal congestion) Throat: Normal Cardiovascular: Tachycardia : Normal Auscultation: Bowel Sounds: Normal Palpation: Normal Tenderness: Normal Skin: Normal Musculoskeletal: Normal Psychiatric: Normal Mood Description: Calm Affect: Normal Speech Pattern: Clear, Appropriate - Laboratory and Diagnostics Result Diagrams: 08/31/17 06:00 08/31/17 06:00 Labs: Laboratory WBC 5.0 X10^3/uL (3.6-10.0) 08/31/17 06:00 RBC 4.49 X10^6/uL (4.7-6.0) L 08/31/17 06:00 Hgb 12.5 g/dL (13.5-18.0) L 08/31/17 06:00 Hct 37.2 % (42.0-54.0) L 08/31/17 06:00 MCV 82.8 fL (80.0-100.0) 08/31/17 06:00 MCH 27.8 pg (27.0-34.0) 08/31/17 06:00 MCHC 33.5 g/dL (33.0-35.0) 08/31/17 06:00 RDW 15.7 % (11.6-16.5) 08/31/17 06:00 Plt Count 138 X10^3/uL (150.0-450.0) L 08/31/17 06:00 MPV 8.2 fL (7.4-11.0) 08/31/17 06:00 Neut % 69.0 % (42.0-75.0) 08/31/17 06:00 Lymph % 18.2 % (21.0-51.0) L 08/31/17 06:00 [place] % 9.6 % (0.0-13.0) 08/31/17 06:00 Eos % 2.2 % (0.9-2.9) 08/31/17 06:00 Baso % 1.0 % (0.2-1.0) 08/31/17 06:00 Neut # 3.4 x10^3/uL (2.2-4.8) 08/31/17 06:00 Lymph # 0.9 X10^3/uL (1.3-2.9) L 08/31/17 06:00 [place] # 0.5 x10^3/uL (0.3-0.8) 08/31/17 06:00 Eos # 0.1 x10^3/uL (0.0-0.2) 08/31/17 06:00 Baso # 0.0 X10^3/uL (0.0-0.1) 08/31/17 06:00 Absolute Nucleated RBC 0.1 /100WBC 08/31/17 06:00 INR Target Range - 08/31/17 06:00 INR 2.23 (0.8-1.3) H 08/31/17 06:00 PTT 41.9 SECONDS (22.9-36.5) H 08/29/17 05:05 PTT Comment - 08/29/17 05:05 D-Dimer 107 ng/mL (0-400) 08/29/17 05:05 Sample Site Rr 08/29/17 05:46 ABG pH 7.420 (7.35-7.45) 08/29/17 05:46 ABG pCO2 39.0 mmHg (35.0-45.0) 08/29/17 05:46 ABG pO2 64.0 mmHg (80.0-100.0) L 08/29/17 05:46 ABG HCO3 25.3 mmol/L (22-26) 08/29/17 05:46 ABG O2 Saturation 92.0 % (90-100) 08/29/17 05:46 ABG Base Excess 0.8 mmol/L (-2.0-2.0) 08/29/17 05:46 Venu Test Pos 08/29/17 05:46 A-a Gradient 87.0 mmHg 08/29/17 05:46 FiO2 28.000 08/29/17 05:46 Blood Gas Comments Toyin well ae 08/29/17 05:46 Sodium 138 mmol/L (136-145) 08/31/17 06:00 Corrected Sodium TNP 08/31/17 06:00 Potassium 4.1 mmol/L (3.5-5.1) 08/31/17 06:00 Chloride 107 mmol/L (98-107) 08/31/17 06:00 Carbon Dioxide 22.2 mmol/L (21-32) 08/31/17 06:00 BUN 33 mg/dL (7-18) H 08/31/17 06:00 Creatinine 1.73 mg/dL (0.70-1.30) H 08/31/17 06:00 Est GFR (MDRD) Af Amer 50 (>60) L 08/31/17 06:00 Est GFR (MDRD) Non-Af 41 (>60) L 08/31/17 06:00 Glucose 66 mg/dL (65-99) 08/31/17 06:00 POC Glucose (mg/dL) 176 mg/dL (65-99) H 08/31/17 11:23 Calcium 8.8 mg/dL (8.5-10.1) 08/31/17 06:00 Corrected Calcium 9.6 mg/dL (8.5-10.1) 08/31/17 06:00 Magnesium 1.5 mg/dL (1.7-2.9) L 08/29/17 05:05 Total Bilirubin 0.50 mg/dL (0.2-1.0) 08/31/17 06:00 AST 19 Units/L (15-37) 08/31/17 06:00 ALT 47 Units/L (12-78) 08/31/17 06:00 Alkaline Phosphatase 69 Units/L (46-116) 08/31/17 06:00 Creatine Kinase 120 Units/L (39-308) 08/29/17 05:05 CK-MB (CK-2) 1.6 ng/mL (0-4.0) 08/29/17 05:05 CK/CKMB % Calc 1.3 % (<4) 08/29/17 05:05 Troponin I 0.04 ng/mL (0-1.5) 08/29/17 05:05 B-Natriuretic Peptide 920 pg/mL (0-79) H* 08/29/17 05:05 Total Protein 6.3 g/dL (6.4-8.2) L 08/31/17 06:00 Albumin 3.0 g/dL (3.4-5.0) L 08/31/17 06:00 Globulin 3.3 g/dL (2.5-4.5) 08/31/17 06:00 Albumin/Globulin Ratio 0.9 Ratio (1.1-2.1) L 08/31/17 06:00 Specimen Type Clean catch urine 08/29/17 10:05 Urine Color Yellow (YELLOW) 08/29/17 10:05 Urine Appearance Clear (CLEAR) 08/29/17 10:05 Urine pH 5.0 (5.0 - 8.0) 08/29/17 10:05 Ur Specific [place] 1.010 (1.000-1.030) 08/29/17 10:05 Urine Protein Negative (NEGATIVE) 08/29/17 10:05 Urine Glucose (UA) Negative (NEGATIVE) 08/29/17 10:05 Urine Ketones Negative (NEGATIVE) 08/29/17 10:05 Urine Occult Blood Negative (NEGATIVE) 08/29/17 10:05 Urine Nitrite Negative (NEGATIVE) 08/29/17 10:05 Urine Bilirubin Negative (NEGATIVE) 08/29/17 10:05 Urine Urobilinogen Normal (NORMAL) 08/29/17 10:05 Ur Leukocyte Esterase 1+ (NEGATIVE) 08/29/17 10:05 Urine RBC None seen /HPF (NEGATIVE) 08/29/17 10:05 Urine WBC Rare /HPF (NEGATIVE) 08/29/17 10:05 Ur Squamous Epith Cells Rare /HPF (NEGATIVE) 08/29/17 10:05 Amorphous Sediment Trace /HPF (NEGATIVE) 08/29/17 10:05 Urine Bacteria Negative /HPF (NEGATIVE) 08/29/17 10:05 Hyaline Casts Rare /LPF (NEGATIVE) 08/29/17 10:05 Ur Culture Indicated? No/not indicated 08/29/17 10:05 Influenza Type A (PCR) Positive (NEGATIVE) A 08/29/17 05:23 Influenza Type B (PCR) Negative (NEGATIVE) 08/29/17 05:23 - Plan (1) Influenza A Status: Acute Plan: tamiflu 75mg po bid, continue to montior (2) Dehydration Status: Acute Plan: normal saline at 80ml/hr, continue to monitor (3) Bronchitis Status: Acute Plan: levaquin 750mg iv q48h, respiratory treatments, continue to monitor
== END 2017-08-31 12:15 | disposition home or self-care (01) | DRG 195 ==
LOC: ER 04:29 → OBS 06:21
PROVIDERS: ADMIT Internal Medicine; ATTEND Internal Medicine
DX: J10.1 Influenza due to other identified influenza virus with other respiratory manifestations (principal); E86.0 Dehydration; J20.8 Acute bronchitis due to other specified organisms; I25.10 Atherosclerotic heart disease of native coronary artery without angina pectoris; I10 Essential (primary) hypertension; I48.91 Unspecified atrial fibrillation; R94.31 Abnormal electrocardiogram [ECG] [EKG]; R06.02 Shortness of breath; R07.89 Other chest pain; E78.2 Mixed hyperlipidemia; E11.65 Type 2 diabetes mellitus with hyperglycemia; E03.8 Other specified hypothyroidism; I51.7 Cardiomegaly; R79.1 Abnormal coagulation profile; Z79.4 Long term (current) use of insulin
CPT/HCPCS: 36415; 36600; 71045; 80053; 81001; 82550; 82553; 82803; 83735; 83880; 84484; 85025; 85378; 85610; 85730; 87040; 87502; 93005; 93041; 94640; 94760; 96365; 96367; 96374; 96375; 99284; A4222; G9035; J1815; J1940; J1956; J2405; J7506; J7620

== ENCOUNTER → 2017-10-27 | Outpatient (CLI) | payer OTHER ==
[2017-10-27 05:44] LABS: ALBUMIN 3.5 g/dL (3.4-5.0); BILIRUBIN,DIRECT 0.14 mg/dL (0-0.2); CHOL/HDL RATIO 3.9 (0.0-5.0); TOTAL PROTEIN 6.9 g/dL (6.4-8.2)
== END ==
LOC: LAB 04:43
PROVIDERS: ATTEND Specialist
DX: E78.2 Mixed hyperlipidemia (principal); Z79.899 Other long term (current) drug therapy
CPT/HCPCS: 36415; 80061; 80076

== ENCOUNTER 2018-02-05 22:04 | Inpatient (IN) ==
[2018-02-05] MEDS ORDERED: SALINE 3% 15 ML NEB TX NEB ONE (22:10)
[2018-02-05] MEDS ORDERED: SALINE 3% 15 ML NEB TX ONE (22:20)
[2018-02-05 22:46] LABS: BASOPHILS # (AUTO) 0.1 X10^3/uL (0.0-0.1); BASOPHILS % (AUTO) 0.6 % (0.2-1.0); EOSINOPHILS % (AUTO) 0.1 % (0.9-2.9); HEMATOCRIT 38.5 % (42.0-54.0); HEMOGLOBIN 12.8 g/dL (13.5-18.0); LYMPHOCYTES # (AUTO) 0.8 X10^3/uL (1.3-2.9); LYMPHOCYTES % (AUTO) 8.8 % (21.0-51.0); MEAN CORPUSCULAR HGB CONC 33.4 g/dL (33.0-35.0); MEAN PLATELET VOLUME 8.7 fL (7.4-11.0); MONOCYTES # (AUTO) 0.7 x10^3/uL (0.3-0.8); MONOCYTES % (AUTO) 7.4 % (0.0-13.0); NEUTROPHILS # (AUTO) 7.3 x10^3/uL (2.2-4.8); NEUTROPHILS % (AUTO) 83.1 % (42.0-75.0); PLATELET COUNT 139 X10^3/uL (150.0-450.0); RED BLOOD COUNT 4.58 X10^6/uL (4.7-6.0); RED CELL DISTRIBUTION WIDTH 16.1 % (11.6-16.5); WHITE BLOOD COUNT 8.8 X10^3/uL (3.6-10.0)
[2018-02-05] MEDS ORDERED: ZOFRAN INJ 4 MG VIAL IVP ONE (22:58)
[2018-02-05 22:59] LABS: ALANINE AMINOTRANSFERASE 75 Units/L (12-78); ALBUMIN 3.1 g/dL (3.4-5.0); ALKALINE PHOSPHATASE 123 Units/L (46-116); ASPARTATE AMINO TRANSFERASE 76 Units/L (15-37); BLOOD UREA NITROGEN 34 mg/dL (7-18); CALCIUM 9.5 mg/dL (8.5-10.1); CARBON DIOXIDE 26.5 mmol/L (21-32); CHLORIDE 105 mmol/L (98-107); COR CA(FOR HYPOALB) 10.2 mg/dL (8.5-10.1); CREATININE 2.02 mg/dL (0.70-1.30); SODIUM 139 mmol/L (136-145); TOTAL PROTEIN 6.9 g/dL (6.4-8.2); eGFR NON BLACK RACES 35 (>60)
[2018-02-05] MEDS ORDERED: ZOFRAN INJ 4 MG VIAL ONE (22:59)
--- NOTE | 2018-02-05 23:12 | RAD ---
HISTORY: Difficulty breathing Study: Two-view chest Comparison: 08/31/2017 Findings: The cardiac silhouette is stable in appearance. The patient is status post median sternotomy and like ly CABG as well as valvular replacement. The trachea is midline. There are ground-glass opacities wit hin the right lung base, concerning for pneumonia. The left lung is relatively clear. The bony struct ures are grossly intact. IMPRESSION: 1. Findings concerning for right basilar pneumonia. Reported By:
[2018-02-05] MEDS ORDERED: LASIX IVP ONE ×2 (23:29→23:33)
[2018-02-05] MEDS ORDERED: ROCEPHIN 1 GRAM IV PREMIX 1 G/50 ML IV.SOLN. IV ONE (23:31)
[2018-02-05] MEDS ORDERED: NS 1/2 1000 ML IV 1,000 ML IV ONE (23:32)
[2018-02-05] MEDS ORDERED: NS 100 ML IV + SPIKE MINIBAG* 100 ML IV ONE (23:33)
[2018-02-05] MEDS ORDERED: ROCEPHIN VIAL 1 GRAM ONE (23:33)
[2018-02-05] MEDS: NS 1/2 1000 ML IV 1,000 ML IV SCH (23:45)
[2018-02-06 01:43] LABS: CKMB % 1.1 % (<4); CREATINE KINASE MB 1.2 ng/mL (0-4.0); TROPONIN I 0.04 ng/mL (0-1.5)
[2018-02-06] MEDS ORDERED: TUSSIONEX PENNKINETIC SUSP PO PRN (01:51)
[2018-02-06] MEDS: VIBRAMYCIN 100 MG in NS 100 ML IV + SPIKE MINIBAG* 100 ML IV SCH ×2 (02:30→09:16)
[2018-02-06 03:42] VITALS: BMI 31.0
[2018-02-06] MEDS ORDERED: NS 100 ML IV + SPIKE MINIBAG* 100 ML IV ONE (04:19)
[2018-02-06] MEDS ORDERED: VIBRAMYCIN IV ONE (04:19)
[2018-02-06] MEDS: NS 1/2 1000 ML IV 1,000 ML IV SCH (04:25)
[2018-02-06 05:32] LABS: BASOPHILS % (AUTO) 0.2 % (0.2-1.0); HEMATOCRIT 33.7 % (42.0-54.0); HEMOGLOBIN 11.4 g/dL (13.5-18.0); LYMPHOCYTES # (AUTO) 0.8 X10^3/uL (1.3-2.9); LYMPHOCYTES % (AUTO) 8.1 % (21.0-51.0); MEAN CORPUSCULAR HEMOGLOBIN 28.2 pg (27.0-34.0); MEAN CORPUSCULAR HGB CONC 33.9 g/dL (33.0-35.0); MEAN CORPUSCULAR VOLUME 83.2 fL (80.0-100.0); MONOCYTES # (AUTO) 0.7 x10^3/uL (0.3-0.8); MONOCYTES % (AUTO) 7.6 % (0.0-13.0); NEUTROPHILS # (AUTO) 8.2 x10^3/uL (2.2-4.8); NEUTROPHILS % (AUTO) 84.1 % (42.0-75.0); PLATELET COUNT 132 X10^3/uL (150.0-450.0); RED BLOOD COUNT 4.05 X10^6/uL (4.7-6.0); RED CELL DISTRIBUTION WIDTH 15.9 % (11.6-16.5); WHITE BLOOD COUNT 9.8 X10^3/uL (3.6-10.0)
[2018-02-06 05:36] LABS: ALANINE AMINOTRANSFERASE 62 Units/L (12-78); ALBUMIN 2.6 g/dL (3.4-5.0); ALKALINE PHOSPHATASE 97 Units/L (46-116); ASPARTATE AMINO TRANSFERASE 48 Units/L (15-37); BLOOD UREA NITROGEN 36 mg/dL (7-18); CALCIUM 8.9 mg/dL (8.5-10.1); CARBON DIOXIDE 26.3 mmol/L (21-32); CHLORIDE 104 mmol/L (98-107); SODIUM 138 mmol/L (136-145); eGFR NON BLACK RACES 33 (>60)
[2018-02-06] MEDS ORDERED: ROBITUSSIN DM PO SCH (09:00)
[2018-02-06] MEDS ORDERED: ROCEPHIN 1 GRAM IV PREMIX 1 G/50 ML IV.SOLN. IV SCH ×2 (09:00)
[2018-02-06] MEDS ORDERED: VIBRAMYCIN 100 MG in NS 100 ML IV + SPIKE MINIBAG* 100 ML IV SCH (09:00)
[2018-02-06] MEDS: XOPENEX 1.25 MG/3 ML NEBULE NEB SCH ×4 (09:03→21:20)
[2018-02-06] MEDS ORDERED: TYLENOL 325 MG TAB PO PRN (09:14)
[2018-02-06] MEDS: ROBITUSSIN DM PO SCH ×3 (09:16→22:01)
[2018-02-06] MEDS ORDERED: PHENERGAN INJ 25 MG IV PRN (11:21)
[2018-02-06] MEDS ORDERED: ZOFRAN INJ 4 MG VIAL ONE (11:24)
[2018-02-06] MEDS: TAMIFLU PO SCH ×2 (11:29→22:03)
[2018-02-06] MEDS: ZOFRAN INJ 4 MG VIAL IVP PRN (11:30)
[2018-02-06] MEDS ORDERED: PHARMACY CONSULT - DOSE _____ XX SCH (12:00)
[2018-02-06] MEDS ORDERED: LEVAQUIN PREMIX IV 750 MG 750 MG/150 ML BAG IV SCH (12:00)
[2018-02-06] MEDS: COUMADIN TAB 5 MG PO SCH (12:38)
[2018-02-06] MEDS: FORTAZ or TAZICEF VIAL INJ 1 G in NS 100 ML IV + SPIKE MINIBAG* 100 ML IV SCH ×2 (14:15→22:01)
[2018-02-06] MEDS: HumuLIN R SUBCUT PRN (22:52)
[2018-02-07] MEDS ORDERED: HumuLIN R SUBCUT ONE (00:48)
[2018-02-07] MEDS: HumaLOG SC ONE (02:25)
[2018-02-07 05:25] LABS: BASOPHILS % (AUTO) 0.4 % (0.2-1.0); HEMATOCRIT 36.4 % (42.0-54.0); HEMOGLOBIN 12.2 g/dL (13.5-18.0); LYMPHOCYTES # (AUTO) 0.5 X10^3/uL (1.3-2.9); LYMPHOCYTES % (AUTO) 6.4 % (21.0-51.0); MEAN CORPUSCULAR HEMOGLOBIN 28.2 pg (27.0-34.0); MEAN CORPUSCULAR HGB CONC 33.7 g/dL (33.0-35.0); MEAN CORPUSCULAR VOLUME 83.6 fL (80.0-100.0); MEAN PLATELET VOLUME 8.9 fL (7.4-11.0); MONOCYTES # (AUTO) 0.6 x10^3/uL (0.3-0.8); MONOCYTES % (AUTO) 7.4 % (0.0-13.0); NEUTROPHILS # (AUTO) 7.1 x10^3/uL (2.2-4.8); NEUTROPHILS % (AUTO) 85.8 % (42.0-75.0); PLATELET COUNT 133 X10^3/uL (150.0-450.0); RED BLOOD COUNT 4.35 X10^6/uL (4.7-6.0); RED CELL DISTRIBUTION WIDTH 15.8 % (11.6-16.5); WHITE BLOOD COUNT 8.3 X10^3/uL (3.6-10.0)
[2018-02-07 05:40] LABS: ALBUMIN 2.6 g/dL (3.4-5.0); CALCIUM 9.4 mg/dL (8.5-10.1); CARBON DIOXIDE 25.6 mmol/L (21-32); COR CA(FOR HYPOALB) 10.5 mg/dL (8.5-10.1); CREATININE 2.61 mg/dL (0.70-1.30); TOTAL PROTEIN 6.4 g/dL (6.4-8.2)
--- NOTE | 2018-02-07 06:55 | RAD ---
HISTORY: Follow-up pneumonia Study: Chest AP portable Comparison: 02/05/2018 Findings: The patient is status post median sternotomy and valve replacement. The heart is enlarged. No congest criselda heart failure is noted. Increasing right basilar infiltrate is present most consistent with pneum onia. No pleural effusions are identified. The bony thorax is unremarkable. IMPRESSION: Increasing right basilar pneumonia when compared with the prior examination Moderate cardiomegaly without congestive heart failure Reported By:
[2018-02-07] MEDS: XOPENEX 1.25 MG/3 ML NEBULE NEB SCH ×4 (07:06→21:23)
--- NOTE | 2018-02-07 08:14 | DR.H&P ---
H&P - History & Physical for Day of: H&P Date: 02/06/18 - Chief Complaint Chief Complaint: cough, shortness of breath, chills - History of Present Illness History of Present Illness: is a 72 year old patient of ours who presented to the emergency room with complaints of shortness of breath, a non- productive cough, and chills. He reported taking three nebulizer treatments prior to presenting to the emergency department. On arrival, vitals were 99.0, 110, 20, 97% 2L NC, 128/70. Labs were obtained. Abnormal Labs include the following: (02/05/18) RBC 4.58, Hgb 12.8, Hct 38.5, Plt Count 139, INR 2.64, PTT 58.8, BUN 34, Creatinine 2.02, GFR af 42, GFR non 35, Glucose 105, Corrected Calcium 10.2, AST 76, Alk Phos 123, BNP 1650, Albumin 3.1, A/G Ratio 0.8; (02/06/18) RBC 4.05, Hgb 11.4, Hct 33.7, Plt Count 132, BUN 36, Creatinine 2.10, GFR af 40, GFR non 33, Glucose 103, AST 48, Total Protein 6.0, Albumin 2.6 , A/G Ratio 0.8. Blood Cultures x2 Pending. EKG revealed: Sinus or Ectopic atrial tachycardia. Multiple premature complexes. [id number]. Chest X-Ray revealed: Findings concerning for right basilar pneumonia. He was given Saline 3 % neb x1, Zofran 4mg IV x1, Lasix 40mg IV x1, and Rocephin 1gm IV x1 in the ER with only slight improvement in symptoms. We admitted patient for further evaluation and treatment of pneumonia, respiratory distress, and CHF. He was started on the pneumonia protocol. We plan to obtain an Echocardiogram today. Otherwise, we will follow up with morning labs and chest xray and continue to monitor patient. - Past Medical History Past Medical History: CHF, Coronary Artery Disease, Diabetes, Hypertension, [place], Renal Disease Additional Medical History: skin cancer, diabetic neuropathy - Past Surgical History Surgical History: CABG/Valve Surgery, Other Additional Surgical History: skin CA removed - Family History Family Medical History: HI - Social History Does patient currently use any type of tobacco product: Yes Have you used tobacco products in the last 12 months: Yes Type of Tobacco Use: Smokeless How many years tobacco product used: 60 Packs per day or dips/chews per day: 1/2PPD Does any household member use tobacco: Yes Alcohol Use: None Drug Use: None - Medications Home Medications: atorvastatin [From Lipitor] Allergy (Verified 02/06/18 02:57) codeine Allergy (Verified 08/29/17 04:31) CONTINUE taking the following medications furosemide 20 mg PO Q48H PRN 02/06/18 [History] gabapentin 300 mg PO HS 02/06/18 [History] lisinopril 20 mg PO BID 02/06/18 [History] warfarin 2.5 mg PO WESA 02/06/18 [History] - Review of Systems Constitutional: Fever, Chills, Weakness Eyes: No Symptoms Reported ENT: No Symptoms Reported Respiratory: Cough, Shortness of Breath, SOB with Excertion Cardiovascular: No Symptoms Reported Gastrointestinal: No Symptoms Reported Genitourinary: No Symptoms Reported Musculoskeletal: No Symptoms Reported Skin: No Symptoms Reported Neurological: Weakness - Physical Exam Vital Signs: Temperature 99.7 F Pulse Rate [Left Brachial] 94 Pulse Rate [Right Brachial] 101 Pulse Rate 90 Respiratory Rate 16 Blood Pressure [Right Arm] 105/58 Blood Pressure [Left Arm] 120/58 Blood Pressure 134/70 O2 Sat by Pulse Oximetry 96 Oriented: Normal Eyes: Normal Ear: Normal Nose: Normal Throat: Normal Respiratory: Rhonchi Throughout, Wheezes Throughout Cardiovascular: Tachycardia. negative: S3, S4, Murmur : Normal Auscultation: Bowel Sounds: Normal Palpation: Normal Tenderness: Normal Skin: Normal Musculoskeletal: Normal Psychiatric: Normal Mood Description: Calm Affect: Normal Speech Pattern: Clear - Assessment/Plan (1) Pneumonia Qualifiers: Pneumonia type: due to unspecified organism Laterality: right Lung location: lower lobe of lung Qualified Code(s): J18.1 - Lobar pneumonia, unspecified organism Status: Acute Plan: admit on pneumonia protocol, continue to monitor (2) Congestive heart failure Qualifiers: Heart failure type: unspecified Heart failure chronicity: acute on chronic Qualified Code(s): I50.9 - Heart failure, unspecified Status: Acute Plan: obtain echo, continue respiratory treatments, supplemental oxygen - Allergies Allergies/Adverse Reactions: Allergies Allergy/AdvReac Type Severity Reaction Status Date / Time atorvastatin [From Lipitor] Allergy Verified 02/06/18 02:57 codeine Allergy Verified 08/29/17 04:31
[2018-02-07] MEDS: ROBITUSSIN DM PO SCH ×5 (08:23→23:02)
[2018-02-07] MEDS: FORTAZ or TAZICEF VIAL INJ 1 G in NS 100 ML IV + SPIKE MINIBAG* 100 ML IV SCH ×2 (09:37→16:28)
[2018-02-07] MEDS: ZOFRAN INJ 4 MG VIAL IVP PRN (09:38)
[2018-02-07] MEDS: TAMIFLU PO SCH ×2 (09:39→23:05)
[2018-02-07] MEDS: ALDACTONE TAB 25 MG PO SCH (12:04)
[2018-02-07] MEDS: COUMADIN TAB 5 MG PO SCH (12:27)
[2018-02-07] MEDS: PREDNISONE TAB 10 MG PO SCH (15:55)
[2018-02-07] MEDS: TACROLIMUS 0.5 MG PO SCH ×2 (15:55→22:00)
[2018-02-07] MEDS ORDERED: TOUJEO SOLOSTAR PEN SC SCH (16:00)
[2018-02-07] MEDS: HumuLIN R SUBCUT PRN ×2 (16:47→22:00)
[2018-02-07] MEDS ORDERED: PRAVACHOL PO SCH (21:00)
[2018-02-07] MEDS: PRAVACHOL PO SCH (21:29)
[2018-02-07] MEDS: NS 1/2 1000 ML IV 1,000 ML IV SCH ×3 (21:31→23:47)
[2018-02-07] MEDS: SNACK - Diabetic Appropriate PO SCH (21:32)
[2018-02-08 05:24] LABS: BASOPHILS % (AUTO) 0.2 % (0.2-1.0); EOSINOPHILS % (AUTO) 0.2 % (0.9-2.9); HEMATOCRIT 36.1 % (42.0-54.0); HEMOGLOBIN 12.1 g/dL (13.5-18.0); LYMPHOCYTES # (AUTO) 0.6 X10^3/uL (1.3-2.9); LYMPHOCYTES % (AUTO) 8.1 % (21.0-51.0); MEAN CORPUSCULAR HEMOGLOBIN 28.2 pg (27.0-34.0); MEAN CORPUSCULAR HGB CONC 33.6 g/dL (33.0-35.0); MEAN CORPUSCULAR VOLUME 83.7 fL (80.0-100.0); MEAN PLATELET VOLUME 8.5 fL (7.4-11.0); MONOCYTES # (AUTO) 0.5 x10^3/uL (0.3-0.8); MONOCYTES % (AUTO) 7.5 % (0.0-13.0); NEUTROPHILS # (AUTO) 6.1 x10^3/uL (2.2-4.8); PLATELET COUNT 172 X10^3/uL (150.0-450.0); RED BLOOD COUNT 4.31 X10^6/uL (4.7-6.0); RED CELL DISTRIBUTION WIDTH 15.8 % (11.6-16.5); WHITE BLOOD COUNT 7.3 X10^3/uL (3.6-10.0)
[2018-02-08 05:37] LABS: ALBUMIN 2.3 g/dL (3.4-5.0); CALCIUM 9.2 mg/dL (8.5-10.1); CARBON DIOXIDE 26.4 mmol/L (21-32); COR CA(FOR HYPOALB) 10.6 mg/dL (8.5-10.1); CREATININE 2.42 mg/dL (0.70-1.30); TOTAL PROTEIN 5.9 g/dL (6.4-8.2)
--- NOTE | 2018-02-08 07:32 | RAD ---
HISTORY: Follow-up pneumonia Study: Chest AP portable Comparison: 02/07/2018 Findings: The patient is status post median sternotomy and CABG and valve replacement. The heart remains enlarg ed. No congestive heart failure is noted. Right basilar infiltrate is unchanged. The remainder of the lung ross are clear. The bony thorax is unremarkable. IMPRESSION: No change right basilar lung infiltrate Moderate cardiomegaly without congestive heart failure Reported By:
[2018-02-08] MEDS: TOUJEO SOLOSTAR PEN SC SCH (08:04)
[2018-02-08] MEDS: XOPENEX 1.25 MG/3 ML NEBULE NEB SCH ×4 (08:31→20:57)
[2018-02-08] MEDS: PREDNISONE TAB 10 MG PO SCH (09:26)
[2018-02-08] MEDS: TAMIFLU PO SCH (09:27)
[2018-02-08] MEDS: ROBITUSSIN DM PO SCH ×4 (09:27→21:12)
[2018-02-08] MEDS: SYNTHROID 100 mcg TAB PO SCH (09:27)
[2018-02-08] MEDS: ALDACTONE TAB 25 MG PO SCH (09:27)
[2018-02-08] MEDS: TACROLIMUS 0.5 MG PO SCH ×2 (10:39→21:12)
[2018-02-08] MEDS ORDERED: AQUA-MEPHYTON ADULT INJ SC ONE (11:17)
[2018-02-08] MEDS: HumuLIN R SUBCUT PRN ×3 (12:17→21:13)
[2018-02-08] MEDS: NS 1/2 1000 ML IV 1,000 ML IV SCH ×3 (12:18→12:26)
[2018-02-08] MEDS ORDERED: COUMADIN TAB 2.5 MG PO SCH (12:21)
[2018-02-08] MEDS ORDERED: NS 1/2 1000 ML IV 1,000 ML IV ONE ×2 (12:23→23:51)
[2018-02-08] MEDS: FORTAZ or TAZICEF VIAL INJ 1 G in NS 100 ML IV + SPIKE MINIBAG* 100 ML IV SCH (16:22)
[2018-02-08] MEDS ORDERED: COUMADIN TAB 4 MG PO SCH (21:00)
[2018-02-08] MEDS: SNACK - Diabetic Appropriate PO SCH (21:10)
[2018-02-08] MEDS: PRAVACHOL PO SCH (21:11)
--- NOTE | 2018-02-08 22:09 | PCM.PROG ---
Progress Note - Progress Note for Day of Date of Exam: 02/07/18 - Subjective Subjective: WAS ADMITTED FOR PNEUMONIA AND CHF EXACERBATION. HE IS ALERT AND ORIENTED ON MORNING ROUNDS. HE CONTINUES WITH COMPLAINTS OF COUGH AND NON-PRODUCTIVE COUGH. ON EXAMINATION, HEART IS REGULAR IN RATE AND RHYTHM. BILATERAL LUNGS ARE NOTED WITH SCATTERED WHEEZING AND RHONCHI THROUGHOUT. ABDOMEN IS ROUND, SOFT, AND NON-TENDER WITH NORMAL BOWEL SOUNDS NOTED IN ALL QUADRANTS. HIS VITALS TODAY WERE 100.2-92-20-100%-144/70. LABS WERE OBTAINED. ABNORMAL LAB VALUES INCLUDE THE FOLLOWING: RBC 4.35, HGB 12.2, HCT 36.4, INR 3.69, BUN 50, CREATININE 2.61, GLUCOSE 120, AST 87, ALT 101, ALK PHOS 138, ALBUMIN 2.6. A CHEST XRAY WAS OBTAINED AND REVEALED: Increasing right basilar pneumonia when compared with the prior examination. Moderate cardiomegaly without congestive heart failure. AN ECHO WAS OBTAINED AND REVEALED AN EJECTION FRACTION OF 35-40%. HE CONTINUES ON IV ANTIBIOTICS, RESPIRATORY TREATMENTS, AND SUPPLEMENTAL OXYGEN. WE WILL CONTINUE WITH CURRENT PLAN OF CARE TODAY AND START ALDACTONE 25MG PO DAILY. OTHERWISE, WE WILL FOLLOW UP WITH AM LABS AND CONTINUE TO MONITOR PATIENT. - Past Medical Family Social History Past Med/Fam/Surg Hx: No changes since H&P Allergies: Allergies atorvastatin [From Lipitor] Allergy (Verified 02/06/18 02:57) codeine Allergy (Verified 08/29/17 04:31) - Review of Systems ROS: No change since H&P - Vital Signs and I&O's Vital Signs: Temperature 98.7 F Pulse Rate [Left Brachial] 99 Pulse Rate [Right Brachial] 120 Pulse Rate 100 Respiratory Rate 20 Blood Pressure [Right Arm] 127/62 Blood Pressure [Left Arm] 108/69 Blood Pressure 134/70 O2 Sat by Pulse Oximetry 96 Intake and Output: Intake & Output 02/06/18 02/07/18 02/08/18 02/09/18 11:59 11:59 11:59 11:59 Intake Total 200 / 200 1926 / 1926 3790 / 3790 1234 / 1234 Output Total 250 / 250 975 / 975 Balance -50 / -50 951 / 951 3790 / 3790 1234 / 1234 - Physical Exam Oriented: Normal Eyes: Normal Ear: Normal Nose: Normal Throat: Normal Respiratory: Generalized, Wheezes, Rhonchi Cardiovascular: Normal. negative: S3, S4, Murmur : Normal Auscultation: Bowel Sounds: Normal Palpation: Normal Tenderness: Normal Skin: Normal Musculoskeletal: Normal Psychiatric: Normal Mood Description: Calm Affect: Normal Speech Pattern: Clear, Appropriate - Laboratory and Diagnostics Result Diagrams: 02/08/18 04:55 02/08/18 04:55 Labs: 02/05/18 22:34 Blood Blood Culture - Preliminary 02/05/18 22:28 Blood Blood Culture - Preliminary Laboratory WBC 7.3 X10^3/uL (3.6-10.0) 02/08/18 04:55 RBC 4.31 X10^6/uL (4.7-6.0) L 02/08/18 04:55 Hgb 12.1 g/dL (13.5-18.0) L 02/08/18 04:55 Hct 36.1 % (42.0-54.0) L 02/08/18 04:55 MCV 83.7 fL (80.0-100.0) 02/08/18 04:55 MCH 28.2 pg (27.0-34.0) 02/08/18 04:55 MCHC 33.6 g/dL (33.0-35.0) 02/08/18 04:55 RDW 15.8 % (11.6-16.5) 02/08/18 04:55 Plt Count 172 X10^3/uL (150.0-450.0) 02/08/18 04:55 MPV 8.5 fL (7.4-11.0) 02/08/18 04:55 Neut % (Auto) 84.0 % (42.0-75.0) H 02/08/18 04:55 Lymph % (Auto) 8.1 % (21.0-51.0) L 02/08/18 04:55 [place] % (Auto) 7.5 % (0.0-13.0) 02/08/18 04:55 Eos % (Auto) 0.2 % (0.9-2.9) L 02/08/18 04:55 Baso % (Auto) 0.2 % (0.2-1.0) 02/08/18 04:55 Neut # (Auto) 6.1 x10^3/uL (2.2-4.8) H 02/08/18 04:55 Lymph # (Auto) 0.6 X10^3/uL (1.3-2.9) L 02/08/18 04:55 [place] # (Auto) 0.5 x10^3/uL (0.3-0.8) 02/08/18 04:55 Eos # (Auto) 0.0 x10^3/uL (0.0-0.2) 02/08/18 04:55 Baso # (Auto) 0.0 X10^3/uL (0.0-0.1) 02/08/18 04:55 Absolute Nucleated RBC 0.0 /100WBC 02/08/18 04:55 INR Target Range - 02/08/18 04:55 INR 4.88 (0.8-1.3) H 02/08/18 04:55 APTT 58.8 SECONDS (22.9-36.5) H 02/05/18 22:28 PTT Comment - 02/05/18 22:28 Sodium 136 mmol/L (136-145) 02/08/18 04:55 Corrected Sodium 139 mmol/L (136-145) 02/08/18 04:55 Potassium 5.0 mmol/L (3.5-5.1) 02/08/18 04:55 Chloride 104 mmol/L (98-107) 02/08/18 04:55 Carbon Dioxide 26.4 mmol/L (21-32) 02/08/18 04:55 BUN 52 mg/dL (7-18) H 02/08/18 04:55 Creatinine 2.42 mg/dL (0.70-1.30) H 02/08/18 04:55 Est GFR (MDRD) Af Amer 34 (>60) L 02/08/18 04:55 Est GFR (MDRD) Non-Af 28 (>60) L 02/08/18 04:55 Glucose 222 mg/dL (65-99) H 02/08/18 04:55 POC Glucose (mg/dL) 333 mg/dL (65-99) H 02/08/18 19:55 Calcium 9.2 mg/dL (8.5-10.1) 02/08/18 04:55 Corrected Calcium 10.6 mg/dL (8.5-10.1) H 02/08/18 04:55 Total Bilirubin 0.40 mg/dL (0.2-1.0) 02/08/18 04:55 AST 35 Units/L (15-37) 02/08/18 04:55 ALT 68 Units/L (12-78) 02/08/18 04:55 Alkaline Phosphatase 118 Units/L (46-116) H 02/08/18 04:55 Creatine Kinase 110 Units/L (39-308) 02/05/18 22:28 CK-MB (CK-2) 1.2 ng/mL (0-4.0) 02/05/18 22:28 CK/CKMB % Calc 1.1 % (<4) 02/05/18 22:28 Troponin I 0.04 ng/mL (0-1.5) 02/05/18 22:28 B-Natriuretic Peptide 1650 pg/mL (0-79) H* 02/05/18 22:28 Total Protein 5.9 g/dL (6.4-8.2) L 02/08/18 04:55 Albumin 2.3 g/dL (3.4-5.0) L 02/08/18 04:55 Globulin 3.6 g/dL (2.5-4.5) 02/08/18 04:55 Albumin/Globulin Ratio 0.6 Ratio (1.1-2.1) L 02/08/18 04:55 Influenza Type A (PCR) Negative (NEGATIVE) 02/06/18 12:46 Influenza Type B (PCR) Negative (NEGATIVE) 02/06/18 12:46 - Plan (1) Pneumonia Status: Acute Qualifiers: Pneumonia type: due to unspecified organism Laterality: right Lung location: lower lobe of lung Qualified Code(s): J18.1 - Lobar pneumonia, unspecified organism Plan: admit on pneumonia protocol, continue to monitor (2) Congestive heart failure Status: Acute Qualifiers: Heart failure type: unspecified Heart failure chronicity: acute on chronic Qualified Code(s): I50.9 - Heart failure, unspecified Plan: ALDACTONE 25MG PO DAILY, CONTINUE HOME MEDICATIONS, continue respiratory treatments, supplemental oxygen
[2018-02-09] MEDS: NS 1/2 1000 ML IV 1,000 ML IV SCH (01:00)
[2018-02-09 05:18] LABS: BASOPHILS % (AUTO) 0.5 % (0.2-1.0); EOSINOPHILS % (AUTO) 0.5 % (0.9-2.9); HEMATOCRIT 36.8 % (42.0-54.0); HEMOGLOBIN 12.4 g/dL (13.5-18.0); LYMPHOCYTES # (AUTO) 0.7 X10^3/uL (1.3-2.9); LYMPHOCYTES % (AUTO) 12.6 % (21.0-51.0); MEAN CORPUSCULAR HEMOGLOBIN 28.2 pg (27.0-34.0); MEAN CORPUSCULAR HGB CONC 33.6 g/dL (33.0-35.0); MEAN CORPUSCULAR VOLUME 83.8 fL (80.0-100.0); MEAN PLATELET VOLUME 8.3 fL (7.4-11.0); MONOCYTES # (AUTO) 0.4 x10^3/uL (0.3-0.8); MONOCYTES % (AUTO) 6.8 % (0.0-13.0); NEUTROPHILS # (AUTO) 4.6 x10^3/uL (2.2-4.8); NEUTROPHILS % (AUTO) 79.6 % (42.0-75.0); PLATELET COUNT 175 X10^3/uL (150.0-450.0); RED BLOOD COUNT 4.39 X10^6/uL (4.7-6.0); RED CELL DISTRIBUTION WIDTH 15.9 % (11.6-16.5); WHITE BLOOD COUNT 5.8 X10^3/uL (3.6-10.0)
[2018-02-09 05:36] LABS: ALBUMIN 2.5 g/dL (3.4-5.0); CALCIUM 9.1 mg/dL (8.5-10.1); COR CA(FOR HYPOALB) 10.3 mg/dL (8.5-10.1); CREATININE 2.21 mg/dL (0.70-1.30); TOTAL PROTEIN 6.3 g/dL (6.4-8.2)
[2018-02-09] MEDS: HumuLIN R SUBCUT PRN (06:09)
[2018-02-09] MEDS: SYNTHROID 100 mcg TAB PO SCH (06:30)
--- NOTE | 2018-02-09 06:59 | RAD ---
HISTORY: Follow-up pneumonia, shortness of breath Study: Chest AP portable Comparison: 02/08/2018 Findings: The patient is status post median sternotomy, valve replacement, CABG. The heart remains enlarged. No congestive heart failure is noted. The lungs are well inflated. There is slight improvement in the r ight basilar infiltrate being followed. A small right pleural effusion is likely present. The remaind er of the lung ross are clear. The bony thorax is unremarkable. IMPRESSION: Slight improvement right basilar lung infiltrate Moderate cardiomegaly without congestive heart failure Reported By:
[2018-02-09] MEDS ORDERED: TAMIFLU PO SCH (09:00)
[2018-02-09] MEDS: XOPENEX 1.25 MG/3 ML NEBULE NEB SCH (09:05)
[2018-02-09] MEDS: ROBITUSSIN DM PO SCH (09:43)
[2018-02-09] MEDS: TOUJEO SOLOSTAR PEN SC SCH (09:43)
[2018-02-09] MEDS: TACROLIMUS 0.5 MG PO SCH (09:43)
[2018-02-09] MEDS: ALDACTONE TAB 25 MG PO SCH (09:43)
[2018-02-09] MEDS: PREDNISONE TAB 10 MG PO SCH (09:43)
[2018-02-09] MEDS ORDERED: AQUA-MEPHYTON ADULT INJ SC ONE (09:52)
[2018-02-09 10:59] VITALS: BP 135/67
--- NOTE | 2018-02-13 14:23 | DR.GENAD ---
HPI PCP Primary Care Physician: KIMBERLY HPI Comment HPI Comment: PATIENT IS WORSE TODAY. NEB TREATMENT AT HOME IS NOT HELPING. PATIENT ALSO HAVE INCREASING EDEMA OF LOWER EXTREMITIES. HE TOOK EXTRA LAXIX BUT IS NOT HELPING. NO FEVER. PATIENT IS WEAK AND CHEST HURTS. Complaint/Symptoms Chief Complaint Doctors Comments: INCREASING SOB TIMES 2 DAYS. Chief Complaint:: PT STATES" MY LUNGS IS STOPPING UP AND I CAN'T BREATHE I TOOK 3 ALBUTEROL TX AT HOME IT DIDN'T HELP" Nurses notes reviewed Nurses Notes Review: Yes Source History Provided: Patient Mode of Arrival Mode of Arrival: Wheelchair Timing Onset of Chief Complaint: 02/04/18 Came on: Suddenly Duration Duration: Constant Duration: Days Severity Severity: Moderate Modifying Factors Worsens:: LAYING DOWN. Improves:: SITTING UP. Associated Signs and Symptoms Associated Signs and Symptoms: CHEST PAIN, COUGH, CONGESTION AND EDEMA. PMH PMH Past Medical History: Yes Past Medical History: CHF, Coronary Artery Disease, Diabetes, Hypertension, [place] and Renal Disease Past Surgical History: Yes Surgical History: CABG/Valve Surgery, Organ Transplant and Other Past Surgical History Comment: KIDNEY TRANSPLANT IN 2004 Family History History of Family Medical Conditions: Yes Family Medical History: [place] Social History Does any household member use tobacco: Yes Alcohol Use: None Do you use any recreational Drugs:: No Lives With: Family Lives Where: Home infectious screening In the last 2 months have you had wt loss of >10#?: NO Have you had fever, night sweats or hemotysis?: No Have you traveled outside the country in the last 6 months?: No Isolation: Standard ROS Review of Systems Constitutional: Weakness and Fatigue; negative Chills and Fever Eyes: No Symptoms Reported ENTM: Nose Congestion Respiratoy: Productive Cough, Orthopnea, Short of Breath and Wheezing Cardiovascular: Chest Pain and Edema Gastrointestinal/Abdominal: Nausea Genitourinary: Other (INCREASE URINE VOLUME.) Neurological: Dizziness Musculoskeletal: Muscle Pain PE Vital Signs Vitals: Temperature 97.7 F Pulse Rate [Left Brachial] 99 Pulse Rate [Right Brachial] 101 Pulse Rate 112 Respiratory Rate 20 Blood Pressure [Right Arm] 127/62 Blood Pressure [Left Arm] 135/67 Blood Pressure 134/70 O2 Sat by Pulse Oximetry 97 ROR Labs Reviewed Result Diagrams: 02/09/18 04:55 02/09/18 04:55 Laboratory: 02/05/18 22:34 Blood Blood Culture - Final 02/05/18 22:28 Blood Blood Culture - Final WBC 5.8 X10^3/uL (3.6-10.0) 02/09/18 04:55 RBC 4.39 X10^6/uL (4.7-6.0) L 02/09/18 04:55 Hgb 12.4 g/dL (13.5-18.0) L 02/09/18 04:55 Hct 36.8 % (42.0-54.0) L 02/09/18 04:55 MCV 83.8 fL (80.0-100.0) 02/09/18 04:55 MCH 28.2 pg (27.0-34.0) 02/09/18 04:55 MCHC 33.6 g/dL (33.0-35.0) 02/09/18 04:55 RDW 15.9 % (11.6-16.5) 02/09/18 04:55 Plt Count 175 X10^3/uL (150.0-450.0) 02/09/18 04:55 MPV 8.3 fL (7.4-11.0) 02/09/18 04:55 Neut % (Auto) 79.6 % (42.0-75.0) H 02/09/18 04:55 Lymph % (Auto) 12.6 % (21.0-51.0) L 02/09/18 04:55 [place] % (Auto) 6.8 % (0.0-13.0) 02/09/18 04:55 Eos % (Auto) 0.5 % (0.9-2.9) L 02/09/18 04:55 Baso % (Auto) 0.5 % (0.2-1.0) 02/09/18 04:55 Neut # (Auto) 4.6 x10^3/uL (2.2-4.8) 02/09/18 04:55 Lymph # (Auto) 0.7 X10^3/uL (1.3-2.9) L 02/09/18 04:55 [place] # (Auto) 0.4 x10^3/uL (0.3-0.8) 02/09/18 04:55 Eos # (Auto) 0.0 x10^3/uL (0.0-0.2) 02/09/18 04:55 Baso # (Auto) 0.0 X10^3/uL (0.0-0.1) 02/09/18 04:55 Absolute Nucleated RBC 0.0 /100WBC 02/09/18 04:55 INR Target Range - 02/09/18 04:55 INR 4.76 (0.8-1.3) H 02/09/18 04:55 APTT 58.8 SECONDS (22.9-36.5) H 02/05/18 22:28 PTT Comment - 02/05/18 22:28 Sodium 137 mmol/L (136-145) 02/09/18 04:55 Corrected Sodium 139 mmol/L (136-145) 02/09/18 04:55 Potassium 4.7 mmol/L (3.5-5.1) 02/09/18 04:55 Chloride 104 mmol/L (98-107) 02/09/18 04:55 Carbon Dioxide 26.0 mmol/L (21-32) 02/09/18 04:55 BUN 50 mg/dL (7-18) H 02/09/18 04:55 Creatinine 2.21 mg/dL (0.70-1.30) H 02/09/18 04:55 Est GFR (MDRD) Af Amer 38 (>60) L 02/09/18 04:55 Est GFR (MDRD) Non-Af 31 (>60) L 02/09/18 04:55 Glucose 180 mg/dL (65-99) H 02/09/18 04:55 POC Glucose (mg/dL) 185 mg/dL (65-99) H 02/09/18 11:13 Calcium 9.1 mg/dL (8.5-10.1) 02/09/18 04:55 Corrected Calcium 10.3 mg/dL (8.5-10.1) H 02/09/18 04:55 Total Bilirubin 0.30 mg/dL (0.2-1.0) 02/09/18 04:55 AST 66 Units/L (15-37) H 02/09/18 04:55 ALT 92 Units/L (12-78) H 02/09/18 04:55 Alkaline Phosphatase 126 Units/L (46-116) H 02/09/18 04:55 Creatine Kinase 110 Units/L (39-308) 02/05/18 22:28 CK-MB (CK-2) 1.2 ng/mL (0-4.0) 02/05/18 22:28 CK/CKMB % Calc 1.1 % (<4) 02/05/18 22:28 Troponin I 0.04 ng/mL (0-1.5) 02/05/18 22:28 B-Natriuretic Peptide 1650 pg/mL (0-79) H* 02/05/18 22:28 Total Protein 6.3 g/dL (6.4-8.2) L 02/09/18 04:55 Albumin 2.5 g/dL (3.4-5.0) L 02/09/18 04:55 Globulin 3.8 g/dL (2.5-4.5) 02/09/18 04:55 Albumin/Globulin Ratio 0.7 Ratio (1.1-2.1) L 02/09/18 04:55 Influenza Type A (PCR) Negative (NEGATIVE) 02/06/18 12:46 Influenza Type B (PCR) Negative (NEGATIVE) 02/06/18 12:46 Diagnosis Discharge Problem: Pneumonia Instructions Instructions: Bleeding Precautions When on Anticoagulant Therapy, Adult Fall Prevention in the Home, [id number] Vitamin K Foods and Warfarin Influenza, Adult, [id number] Prothrombin Time, International Normalized Ratio Test Managing Your Hypertension Type 2 Diabetes Mellitus, Diagnosis, Adult, [id number] Community-Acquired Pneumonia, Adult, [id number] Forms: Patient Portal
--- NOTE | 2018-02-28 23:32 | DR.CARTERD ---
- Discharge Summary for: Discharge Summary for Date of:: 02/09/18 - Admission Date Date of Admission: 02/06/18 - Admission Diagnoses Admission Diagnosis: (1) Pneumonia (2) CHF Exacerbation (3) Shortness of breath - Discharge Date Discharge Date: 02/09/18 - Discharge Diagnoses Discharge Diagnosis: (1) Pneumonia (2) CHF Exacerbation (3) Shortness of breath - Hospital Course Hospital Course: Mr. Pringle is a 72 year old patient of ours who presented to the emergency room with complaints of shortness of breath, a non-productive cough, and chills. He reported taking three nebulizer treatments prior to presenting to the emergency department. On arrival, vitals were 99.0, 110, 20, 97% 2L NC, 128/70. Labs were obtained. Abnormal Labs included the following: (02/05/18) RBC 4.58, Hgb 12.8, Hct 38.5, Plt Count 139, INR 2.64, PTT 58.8, BUN 34, Creatinine 2.02, GFR af 42 , GFR non 35, Glucose 105, Corrected Calcium 10.2, AST 76, Alk Phos 123, BNP 1650, Albumin 3.1, A/G Ratio 0.8; (02/06/18) RBC 4.05, Hgb 11.4, Hct 33.7, Plt Count 132, BUN 36, Creatinine 2.10, GFR af 40, GFR non 33, Glucose 103, AST 48, Total Protein 6.0, Albumin 2.6, A/G Ratio 0.8. Blood Cultures x2 obtained. EKG revealed: Sinus or Ectopic atrial tachycardia. Multiple premature complexes. Wksz=[id number]. Chest X-Ray revealed: Findings concerning for right basilar pneumonia. He was given Saline 3% neb x1, Zofran 4mg IV x1, Lasix 40mg IV x1, and Rocephin 1gm IV x1 in the ER with only slight improvement in symptoms. We admitted patient for further evaluation and treatment of pneumonia, respiratory distress, and CHF. He was started on the pneumonia protocol. On day two, patient continued treatment for pneumonia and CHF exacerbation. He was alert and oriented upon rounds. He continued with complaints of cough and non- productive cough. On examination, heart was regular in rate and rhythm; bilateral lungs were noted with scattered wheezing and rhonchi throughout. Abdomen was round, soft, and non-tender with normal bowel sounds noted in all quadrants. Vitals were 100.2-92-20-100%-144/70. Chest xray reported: Increasing right basilar pneumonia when compared with the prior examination. Moderate cardiomegaly without congestive heart failure. An echo was obtained and reported an ejection fraction of 35-40%. We continued IV antibiotics, respiratory treatments, and supplemental oxygen. We started Aldactone 25mg po daily. On day three, He continued with complaints of cough and non-productive cough. On examination, heart was regular in rate and rhythm; bilateral lungs were noted with scattered wheezing and rhonchi throughout. Abdomen was round, soft, and non-tender with normal bowel sounds noted in all quadrants. We continued IV antibiotics, respiratory treatments, and supplemental oxygen. On day four, patient reported improvement in symptoms. He denied shortness of breath and was noted with no acute distress. Final blood cultures were negative. Vitals stable, afebrile. Labs wnl. Chest xray reported improvement in right basilar infiltrate. We planned for discharge. Instructions for medications and follow up were discussed with patient and family, both voiced understanding. Patient discharged home in stable condition with family. - Discharge Medications Discharge Medications: Home Medication List furosemide 20 mg PO Q48H PRN 02/06/18 [History] lisinopril 20 mg PO BID 02/06/18 [History] amitriptyline 10 mg PO HS #30 tab 02/09/18 [Rx] cefdinir 300 mg PO Q12H #20 cap 02/09/18 [Rx] Prescriptions: amitriptyline Chance Hernadez cefdinir Chance Hernadez Home medications Insulin Aspart [NovoLog insulin 10 mL vial] 2 - 14 unit SC PRN PRN 08/29/17 carvedilol 25 mg PO BID 08/29/17 insulin glargine U-300 conc [Toujeo SoloStar U-300 Insulin] 40 units SC QAM levothyroxine 100 mcg PO DAILY 08/29/17 pravastatin [Pravachol] 80 mg PO HS 08/29/17 prednisone 10 mg PO DAILY 08/29/17 tacrolimus [Prograf] 0.5 mg PO BID 08/29/17 - Discharge Disposition Discharge Disposition: Patient is to follow up in our office in one week.
--- NOTE | 2018-03-01 00:05 | PCM.PROG ---
Progress Note - Progress Note for Day of Date of Exam: 02/08/18 - Subjective Subjective: WAS ADMITTED FOR PNEUMONIA AND CHF EXACERBATION. HE IS ALERT AND ORIENTED ON MORNING ROUNDS. HE CONTINUES WITH COMPLAINTS OF COUGH AND NON-PRODUCTIVE COUGH. ON EXAMINATION, HEART IS REGULAR IN RATE AND RHYTHM. BILATERAL LUNGS ARE NOTED WITH SCATTERED WHEEZING AND RHONCHI THROUGHOUT. ABDOMEN IS ROUND, SOFT, AND NON-TENDER WITH NORMAL BOWEL SOUNDS NOTED IN ALL QUADRANTS. HIS VITALS ARE STABLE. WE WILL CONTINUE IV ANTIBIOTICS, RESPIRATORY TREATMENTS, AND SUPPLEMENTAL OXYGEN. WE WILL CONTINUE WITH CURRENT PLAN OF CARE TODAY AND CONTINUE ALDACTONE 25MG PO DAILY. OTHERWISE, WE WILL FOLLOW UP WITH AM LABS AND CONTINUE TO MONITOR PATIENT. - Past Medical Family Social History Past Med/Fam/Surg Hx: No changes since H&P Allergies: Allergies atorvastatin [From Lipitor] Allergy (Verified 02/06/18 02:57) codeine Allergy (Verified 08/29/17 04:31) - Review of Systems ROS: No change since H&P - Vital Signs and I&O's Vital Signs: Temperature 97.7 F Pulse Rate [Left Brachial] 99 Pulse Rate [Right Brachial] 101 Pulse Rate 112 Respiratory Rate 20 Blood Pressure [Right Arm] 127/62 Blood Pressure [Left Arm] 135/67 Blood Pressure 134/70 O2 Sat by Pulse Oximetry 97 - Physical Exam Oriented: Normal Eyes: Normal Ear: Normal Nose: Normal Throat: Normal Respiratory: Generalized, Wheezes, Rhonchi Cardiovascular: Normal. negative: S3, S4, Murmur : Normal Auscultation: Bowel Sounds: Normal Tenderness: Normal Skin: Normal Musculoskeletal: Normal Psychiatric: Normal Mood Description: Calm Affect: Normal Speech Pattern: Clear, Appropriate - Laboratory and Diagnostics Result Diagrams: 02/09/18 04:55 02/09/18 04:55 Labs: 02/05/18 22:34 Blood Blood Culture - Final 02/05/18 22:28 Blood Blood Culture - Final Laboratory WBC 5.8 X10^3/uL (3.6-10.0) 02/09/18 04:55 RBC 4.39 X10^6/uL (4.7-6.0) L 02/09/18 04:55 Hgb 12.4 g/dL (13.5-18.0) L 02/09/18 04:55 Hct 36.8 % (42.0-54.0) L 02/09/18 04:55 MCV 83.8 fL (80.0-100.0) 02/09/18 04:55 MCH 28.2 pg (27.0-34.0) 02/09/18 04:55 MCHC 33.6 g/dL (33.0-35.0) 02/09/18 04:55 RDW 15.9 % (11.6-16.5) 02/09/18 04:55 Plt Count 175 X10^3/uL (150.0-450.0) 02/09/18 04:55 MPV 8.3 fL (7.4-11.0) 02/09/18 04:55 Neut % (Auto) 79.6 % (42.0-75.0) H 02/09/18 04:55 Lymph % (Auto) 12.6 % (21.0-51.0) L 02/09/18 04:55 [place] % (Auto) 6.8 % (0.0-13.0) 02/09/18 04:55 Eos % (Auto) 0.5 % (0.9-2.9) L 02/09/18 04:55 Baso % (Auto) 0.5 % (0.2-1.0) 02/09/18 04:55 Neut # (Auto) 4.6 x10^3/uL (2.2-4.8) 02/09/18 04:55 Lymph # (Auto) 0.7 X10^3/uL (1.3-2.9) L 02/09/18 04:55 [place] # (Auto) 0.4 x10^3/uL (0.3-0.8) 02/09/18 04:55 Eos # (Auto) 0.0 x10^3/uL (0.0-0.2) 02/09/18 04:55 Baso # (Auto) 0.0 X10^3/uL (0.0-0.1) 02/09/18 04:55 Absolute Nucleated RBC 0.0 /100WBC 02/09/18 04:55 INR Target Range - 02/09/18 04:55 INR 4.76 (0.8-1.3) H 02/09/18 04:55 APTT 58.8 SECONDS (22.9-36.5) H 02/05/18 22:28 PTT Comment - 02/05/18 22:28 Sodium 137 mmol/L (136-145) 02/09/18 04:55 Corrected Sodium 139 mmol/L (136-145) 02/09/18 04:55 Potassium 4.7 mmol/L (3.5-5.1) 02/09/18 04:55 Chloride 104 mmol/L (98-107) 02/09/18 04:55 Carbon Dioxide 26.0 mmol/L (21-32) 02/09/18 04:55 BUN 50 mg/dL (7-18) H 02/09/18 04:55 Creatinine 2.21 mg/dL (0.70-1.30) H 02/09/18 04:55 Est GFR (MDRD) Af Amer 38 (>60) L 02/09/18 04:55 Est GFR (MDRD) Non-Af 31 (>60) L 02/09/18 04:55 Glucose 180 mg/dL (65-99) H 02/09/18 04:55 POC Glucose (mg/dL) 185 mg/dL (65-99) H 02/09/18 11:13 Calcium 9.1 mg/dL (8.5-10.1) 02/09/18 04:55 Corrected Calcium 10.3 mg/dL (8.5-10.1) H 02/09/18 04:55 Total Bilirubin 0.30 mg/dL (0.2-1.0) 02/09/18 04:55 AST 66 Units/L (15-37) H 02/09/18 04:55 ALT 92 Units/L (12-78) H 02/09/18 04:55 Alkaline Phosphatase 126 Units/L (46-116) H 02/09/18 04:55 Creatine Kinase 110 Units/L (39-308) 02/05/18 22:28 CK-MB (CK-2) 1.2 ng/mL (0-4.0) 02/05/18 22:28 CK/CKMB % Calc 1.1 % (<4) 02/05/18 22:28 Troponin I 0.04 ng/mL (0-1.5) 02/05/18 22:28 B-Natriuretic Peptide 1650 pg/mL (0-79) H* 02/05/18 22:28 Total Protein 6.3 g/dL (6.4-8.2) L 02/09/18 04:55 Albumin 2.5 g/dL (3.4-5.0) L 02/09/18 04:55 Globulin 3.8 g/dL (2.5-4.5) 02/09/18 04:55 Albumin/Globulin Ratio 0.7 Ratio (1.1-2.1) L 02/09/18 04:55 Influenza Type A (PCR) Negative (NEGATIVE) 02/06/18 12:46 Influenza Type B (PCR) Negative (NEGATIVE) 02/06/18 12:46 - Plan (1) Pneumonia Status: Acute Qualifiers: Pneumonia type: due to unspecified organism Laterality: right Lung location: lower lobe of lung Qualified Code(s): J18.1 - Lobar pneumonia, unspecified organism Plan: admit on pneumonia protocol, continue to monitor (2) Congestive heart failure Status: Acute Qualifiers: Heart failure type: unspecified Heart failure chronicity: acute on chronic Qualified Code(s): I50.9 - Heart failure, unspecified Plan: ALDACTONE 25MG PO DAILY, CONTINUE HOME MEDICATIONS, continue respiratory treatments, supplemental oxygen
== END 2018-02-09 11:40 | disposition home or self-care (01) | DRG 195 ==
LOC: ER 22:04 → MED/SURG 02-06 01:24
PROVIDERS: ADMIT Internal Medicine; ATTEND Internal Medicine
DX: R60.0 Localized edema; R94.31 Abnormal electrocardiogram [ECG] [EKG]; E11.65 Type 2 diabetes mellitus with hyperglycemia; R79.1 Abnormal coagulation profile; I11.0 Hypertensive heart disease with heart failure; R06.03 Acute respiratory distress; J18.8 Other pneumonia, unspecified organism; I50.9 Heart failure, unspecified; R06.02 Shortness of breath
CPT/HCPCS: 36415; 71010; 71020; 71045; 71046; 80053; 82550; 82553; 83880; 84484; 85025; 85610; 85730; 87040; 87502; 93005; 93306; 94640; 94760; 96365; 96367; 96374; 96375; 99284; A4222; G9035; J0696; J0713; J1815; J1817; J1940; J1956; J2405; J3430; J3490; J7050; J7512

== ENCOUNTER 2019-02-26 11:11 | Inpatient (IN) ==
[2019-02-26] MEDS ORDERED: HumuLIN R SUBCUT PRN (12:17)
[2019-02-26] MEDS ORDERED: PHARMACY CONSULT - DOSE _____ XX SCH (13:00)
[2019-02-26 13:04] LABS: BASOPHILS % (AUTO) 0.5 % (0.2-1.0); EOSINOPHILS % (AUTO) 0.2 % (0.9-2.9); HEMATOCRIT 35.7 % (42.0-54.0); HEMOGLOBIN 11.7 g/dL (13.5-18.0); LYMPHOCYTES # (AUTO) 0.5 X10^3/uL (1.3-2.9); LYMPHOCYTES % (AUTO) 8.7 % (21.0-51.0); MEAN CORPUSCULAR HEMOGLOBIN 27.2 pg (27.0-34.0); MEAN CORPUSCULAR HGB CONC 32.8 g/dL (33.0-35.0); MEAN CORPUSCULAR VOLUME 82.8 fL (80.0-100.0); MEAN PLATELET VOLUME 8.4 fL (7.4-11.0); MONOCYTES # (AUTO) 0.2 x10^3/uL (0.3-0.8); MONOCYTES % (AUTO) 3.7 % (0.0-13.0); NEUTROPHILS # (AUTO) 5.5 x10^3/uL (2.2-4.8); NEUTROPHILS % (AUTO) 86.9 % (42.0-75.0); PLATELET COUNT 127 X10^3/uL (150.0-450.0); RED BLOOD COUNT 4.31 X10^6/uL (4.7-6.0); RED CELL DISTRIBUTION WIDTH 17.8 % (11.6-16.5); WHITE BLOOD COUNT 6.3 X10^3/uL (3.6-10.0)
[2019-02-26 13:12] LABS: ALANINE AMINOTRANSFERASE 91 Units/L (12-78); ALBUMIN 3.3 g/dL (3.4-5.0); ALKALINE PHOSPHATASE 162 Units/L (46-116); ASPARTATE AMINO TRANSFERASE 119 Units/L (15-37); BLOOD UREA NITROGEN 45 mg/dL (7-18); CALCIUM 9.1 mg/dL (8.5-10.1); CARBON DIOXIDE 26.8 mmol/L (21-32); CHLORIDE 105 mmol/L (98-107); COR CA(FOR HYPOALB) 9.7 mg/dL (8.5-10.1); CREATININE 2.72 mg/dL (0.70-1.30); SODIUM 141 mmol/L (136-145); TOTAL PROTEIN 6.8 g/dL (6.4-8.2); eGFR NON BLACK RACES 24 (>60)
[2019-02-26] MEDS: NS 1000 ML 1,000 ML IV SCH (13:40)
[2019-02-26] MEDS ORDERED: COUMADIN TAB 5 MG PO NR (16:00)
[2019-02-26] MEDS ORDERED: INSULIN ASPART SC PRN (17:00)
[2019-02-26] MEDS: SNACK - Diabetic Appropriate PO SCH ×2 (20:33)
[2019-02-26] MEDS: TACROLIMUS 0.5 MG PO SCH (20:42)
[2019-02-26] MEDS: ZOSYN VIAL 3.375 GRAMS 3.375 G in NS 100 ML IV + SPIKE MINIBAG* 100 ML IV SCH (20:42)
[2019-02-27] MEDS: NS 1000 ML 1,000 ML IV SCH ×2 (04:21→22:00)
[2019-02-27 05:19] LABS: BASOPHILS % (AUTO) 0.5 % (0.2-1.0); EOSINOPHILS % (AUTO) 0.5 % (0.9-2.9); HEMATOCRIT 32.3 % (42.0-54.0); HEMOGLOBIN 10.7 g/dL (13.5-18.0); LYMPHOCYTES # (AUTO) 0.7 X10^3/uL (1.3-2.9); LYMPHOCYTES % (AUTO) 15.5 % (21.0-51.0); MEAN CORPUSCULAR HEMOGLOBIN 27.4 pg (27.0-34.0); MEAN CORPUSCULAR HGB CONC 33.1 g/dL (33.0-35.0); MEAN CORPUSCULAR VOLUME 82.8 fL (80.0-100.0); MEAN PLATELET VOLUME 8.8 fL (7.4-11.0); MONOCYTES # (AUTO) 0.3 x10^3/uL (0.3-0.8); MONOCYTES % (AUTO) 5.8 % (0.0-13.0); NEUTROPHILS # (AUTO) 3.7 x10^3/uL (2.2-4.8); NEUTROPHILS % (AUTO) 77.7 % (42.0-75.0); PLATELET COUNT 115 X10^3/uL (150.0-450.0); RED CELL DISTRIBUTION WIDTH 17.8 % (11.6-16.5); WHITE BLOOD COUNT 4.8 X10^3/uL (3.6-10.0)
[2019-02-27 05:29] LABS: ALANINE AMINOTRANSFERASE 81 Units/L (12-78); ALBUMIN 2.9 g/dL (3.4-5.0); ALKALINE PHOSPHATASE 146 Units/L (46-116); ASPARTATE AMINO TRANSFERASE 60 Units/L (15-37); BLOOD UREA NITROGEN 47 mg/dL (7-18); CALCIUM 8.6 mg/dL (8.5-10.1); CARBON DIOXIDE 28.7 mmol/L (21-32); CHLORIDE 107 mmol/L (98-107); COR CA(FOR HYPOALB) 9.5 mg/dL (8.5-10.1); CREATININE 2.54 mg/dL (0.70-1.30); SODIUM 142 mmol/L (136-145); TOTAL PROTEIN 6.1 g/dL (6.4-8.2); eGFR NON BLACK RACES 26 (>60)
[2019-02-27 06:42] VITALS: BMI 30.4
[2019-02-27] MEDS ORDERED: MULTIVIT MIN FA LYCOPEN LUTEIN PO SCH (09:00)
[2019-02-27] MEDS ORDERED: OMEGA DHA EPA FISH OIL PO SCH (09:00)
[2019-02-27] MEDS ORDERED: TOUJEO SOLOSTAR PEN SC SCH (09:00)
[2019-02-27] MEDS: ZOSYN VIAL 3.375 GRAMS 3.375 G in NS 100 ML IV + SPIKE MINIBAG* 100 ML IV SCH ×2 (10:05→22:00)
[2019-02-27] MEDS: SYNTHROID 112 mcg TAB PO SCH ×2 (10:05→18:08)
[2019-02-27] MEDS: TAB-A-VITE PO SCH (10:06)
[2019-02-27] MEDS: LOVAZA PO SCH (10:06)
[2019-02-27] MEDS: PREDNISONE TAB 10 MG PO SCH ×2 (10:06→18:08)
[2019-02-27] MEDS: ZETIA TAB 10 MG PO SCH ×2 (10:06→18:10)
[2019-02-27] MEDS: PATIENT'S HOME MEDICATION SC SCH (10:07)
[2019-02-27] MEDS: TACROLIMUS 0.5 MG PO SCH ×2 (10:10→21:41)
[2019-02-27] MEDS ORDERED: COUMADIN TAB 2.5 MG PO NR (16:00)
[2019-02-27] MEDS: SNACK - Diabetic Appropriate PO SCH ×2 (21:42→22:54)
[2019-02-28] MEDS: NS 1000 ML 1,000 ML IV SCH ×2 (04:12→20:43)
[2019-02-28 05:25] LABS: BASOPHILS % (AUTO) 0.5 % (0.2-1.0); EOSINOPHILS % (AUTO) 0.8 % (0.9-2.9); HEMATOCRIT 33.3 % (42.0-54.0); HEMOGLOBIN 11.1 g/dL (13.5-18.0); LYMPHOCYTES # (AUTO) 0.8 X10^3/uL (1.3-2.9); LYMPHOCYTES % (AUTO) 14.5 % (21.0-51.0); MEAN CORPUSCULAR HEMOGLOBIN 27.2 pg (27.0-34.0); MEAN CORPUSCULAR HGB CONC 33.2 g/dL (33.0-35.0); MEAN CORPUSCULAR VOLUME 81.9 fL (80.0-100.0); MEAN PLATELET VOLUME 8.9 fL (7.4-11.0); MONOCYTES # (AUTO) 0.4 x10^3/uL (0.3-0.8); MONOCYTES % (AUTO) 6.5 % (0.0-13.0); NEUTROPHILS # (AUTO) 4.3 x10^3/uL (2.2-4.8); NEUTROPHILS % (AUTO) 77.7 % (42.0-75.0); PLATELET COUNT 132 X10^3/uL (150.0-450.0); RED BLOOD COUNT 4.06 X10^6/uL (4.7-6.0); RED CELL DISTRIBUTION WIDTH 17.4 % (11.6-16.5); WHITE BLOOD COUNT 5.6 X10^3/uL (3.6-10.0)
[2019-02-28 05:31] LABS: CALCIUM 8.7 mg/dL (8.5-10.1); CARBON DIOXIDE 28.2 mmol/L (21-32); COR CA(FOR HYPOALB) 9.5 mg/dL (8.5-10.1); CREATININE 2.46 mg/dL (0.70-1.30); TOTAL PROTEIN 6.3 g/dL (6.4-8.2)
[2019-02-28] MEDS: ZOSYN VIAL 3.375 GRAMS 3.375 G in NS 100 ML IV + SPIKE MINIBAG* 100 ML IV SCH ×2 (09:16→20:43)
[2019-02-28] MEDS: LOVAZA PO SCH (09:17)
[2019-02-28] MEDS: COREG TAB 25 MG PO SCH ×2 (09:18→20:41)
[2019-02-28] MEDS: PREDNISONE TAB 10 MG PO SCH (09:18)
[2019-02-28] MEDS: ZETIA TAB 10 MG PO SCH (09:18)
[2019-02-28] MEDS: TAB-A-VITE PO SCH (09:18)
[2019-02-28] MEDS: SYNTHROID 112 mcg TAB PO SCH (09:18)
[2019-02-28] MEDS: TACROLIMUS 0.5 MG PO SCH ×2 (09:19→20:41)
[2019-02-28] MEDS: PATIENT'S HOME MEDICATION SC SCH (09:20)
--- NOTE | 2019-02-28 11:59 | RAD ---
History: Cellulitis and pain of right foot Study: Three views of the right foot Comparison: None Findings: There is osteopenia and diffuse peripheral arterial vascular atherosclerotic calcification. There is no fracture or bone erosion or bone destruction evident. There is dorsal soft tissue swelling. Impression: No evidence for osteomyelitis Reported By:
[2019-02-28] MEDS ORDERED: COUMADIN TAB 2.5 MG PO NR (16:00)
--- NOTE | 2019-02-28 18:15 | DR.UPDATE ---
H&P Update History and Physical Update: History and Physical reviewed and patient examined. Changes noted: Yes with the following: WAS SEEN IN THE OFFICE TODAY FOR RIGHT FOOT REDNESS, SWELLING, AND PAIN. HE HAS BEEN TAKING BACTRIM DS WITHOUT SIGNIFICANT IMPROVEMENT IN SYMPTOMS. HE WAS ADMITTED FOR FURTHER EVALUATION AND TREATMENT OF CELLULITIS OF THE RIGHT FOOT. ON ADMISSION, WE WILL OBTAIN LABS AND START IV ZOSYN, NORMAL SALINE AT [facility], AND WILL RESUME HIS HOME MEDS. OTHERWISE, WE WILL FOLLOW U PWITH AM LABS AND CONTINUE TO MONITOR.
--- NOTE | 2019-02-28 18:44 | PCM.PROG ---
Progress Note - Progress Note for Day of Date of Exam: 02/27/19 - Subjective Subjective: WAS ADMITTED FOR RIGHT LOWER EXTREMITY CELLULITIS. TODAY, HE IS ALERT AND ORIENTED, LYING IN BED ON MORNING ROUNDS. HE CONTINUES WITH COMPLAINTS OF PAIN AND SWELLING TO THE RIGHT LEG. ON EXAMINATION, HEART IS REGULAR IN RATE AND RHYTHM. BILATERAL LUNGS ARE NOTED WITH DIMINISHED LUNG SOUNDS THROUGHOUT. ABDOMEN IS ROUND, SOFT, AND NON-TENDER WITH NORMAL BOWEL SOUNDS NOTED IN ALL QUADRNATS. BILATERAL LOWER EXTREMITIES ARE NOTED WITH 1+ PITTING EDEMA. RIGHT LOWER EXTREMITY IS NOTED WITH ERYTHEMA. HIS VITALS THIS MORNING ARE: 98.2-60-20-100%-131/60. LABS WERE OBTAINED. ABNORMAL LAB VALUES INCLUDE THE FOLLOWING: RBC 3.90, HGB 10.7, HCT 32.3, BUN 47, CREATININE 2.54, GLUCOSE 105, AST 60, ALT 81, ALK PHOS 146, TOTAL PROTEIN 6.1, ALBUMIN 2.9. BLOOD CULTURES AND RIGHT FOOT WOUND CULTURE ARE PENDING. TODAY, WE WILL OBTAIN AN ECHO. WE WILL OBTAIN A BONE SCAN IN THE MORNING. OTHERWISE, WE PLAN TO FOLLOW UP WITH AM LABS AND CONTINUE TO MONITOR. - Past Medical Family Social History Past Med/Fam/Surg Hx: No changes since H&P Allergies: Allergies atorvastatin [From Lipitor] Allergy (Verified 02/06/18 02:57) codeine Allergy (Verified 08/29/17 04:31) - Review of Systems ROS: No change since H&P - Vital Signs and I&O's Vital Signs: Temperature 97.6 F Pulse Rate [Right Brachial] 60 Pulse Rate [Left Brachial] 60 Respiratory Rate 18 Blood Pressure [Right Arm] 162/69 Blood Pressure [Left Arm] 141/66 Blood Pressure 135/67 O2 Sat by Pulse Oximetry 98 Intake and Output: Intake & Output 02/26/19 02/27/19 02/28/19 03/01/19 11:59 11:59 11:59 11:59 Intake Total 1160 / 1160 2260 / 2260 920 / 920 Output Total 1350 / 1350 5 / 2074 1100 / 1100 Balance -190 / -190 185 / 185 -180 / -180 - Physical Exam Oriented: Normal Eyes: Normal Ear: Normal Nose: Normal Throat: Normal Respiratory: Generalized, Diminished Cardiovascular: Normal. negative: S3, S4, Murmur : Normal Auscultation: Bowel Sounds: Normal Palpation: Normal Tenderness: Normal Skin: Red, Tender, Hot Musculoskeletal: Right, Foot, Swelling, Tender Psychiatric: Normal Mood Description: Calm Affect: Normal Speech Pattern: Clear, Appropriate - Laboratory and Diagnostics Result Diagrams: 02/28/19 04:00 02/28/19 04:00 Labs: 02/26/19 12:43 Blood Blood Culture - Preliminary 02/26/19 12:37 Blood Blood Culture - Preliminary 02/26/19 17:00 Foot - Right Gram Stain - Final 02/26/19 17:00 Foot - Right Wound Culture - Preliminary Laboratory WBC 5.6 X10^3/uL (3.6-10.0) 02/28/19 04:00 RBC 4.06 X10^6/uL (4.7-6.0) L 02/28/19 04:00 Hgb 11.1 g/dL (13.5-18.0) L 02/28/19 04:00 Hct 33.3 % (42.0-54.0) L 02/28/19 04:00 MCV 81.9 fL (80.0-100.0) 02/28/19 04:00 MCH 27.2 pg (27.0-34.0) 02/28/19 04:00 MCHC 33.2 g/dL (33.0-35.0) 02/28/19 04:00 RDW 17.4 % (11.6-16.5) H 02/28/19 04:00 Plt Count 132 X10^3/uL (150.0-450.0) L 02/28/19 04:00 MPV 8.9 fL (7.4-11.0) 02/28/19 04:00 Neut % (Auto) 77.7 % (42.0-75.0) H 02/28/19 04:00 Lymph % (Auto) 14.5 % (21.0-51.0) L 02/28/19 04:00 [place] % (Auto) 6.5 % (0.0-13.0) 02/28/19 04:00 Eos % (Auto) 0.8 % (0.9-2.9) L 02/28/19 04:00 Baso % (Auto) 0.5 % (0.2-1.0) 02/28/19 04:00 Neut # (Auto) 4.3 x10^3/uL (2.2-4.8) 02/28/19 04:00 Lymph # (Auto) 0.8 X10^3/uL (1.3-2.9) L 02/28/19 04:00 [place] # (Auto) 0.4 x10^3/uL (0.3-0.8) 02/28/19 04:00 Eos # (Auto) 0.0 x10^3/uL (0.0-0.2) 02/28/19 04:00 Baso # (Auto) 0.0 X10^3/uL (0.0-0.1) 02/28/19 04:00 Absolute Nucleated RBC 0.0 /100WBC 02/28/19 04:00 INR Target Range - 02/26/19 12:37 INR 1.91 (0.8-1.3) H 02/26/19 12:37 Sodium 141 mmol/L (136-145) 02/28/19 04:00 Corrected Sodium 142 mmol/L (136-145) 02/28/19 04:00 Potassium 4.5 mmol/L (3.5-5.1) 02/28/19 04:00 Chloride 105 mmol/L (98-107) 02/28/19 04:00 Carbon Dioxide 28.2 mmol/L (21-32) 02/28/19 04:00 BUN 45 mg/dL (7-18) H 02/28/19 04:00 Creatinine 2.46 mg/dL (0.70-1.30) H 02/28/19 04:00 Est GFR (MDRD) Af Amer 33 (>60) L 02/28/19 04:00 Est GFR (MDRD) Non-Af 27 (>60) L 02/28/19 04:00 Glucose 129 mg/dL (65-99) H 02/28/19 04:00 Calcium 8.7 mg/dL (8.5-10.1) 02/28/19 04:00 Corrected Calcium 9.5 mg/dL (8.5-10.1) 02/28/19 04:00 Total Bilirubin 0.50 mg/dL (0.2-1.0) 02/28/19 04:00 AST 67 Units/L (15-37) H 02/28/19 04:00 ALT 100 Units/L (12-78) H 02/28/19 04:00 Alkaline Phosphatase 157 Units/L (46-116) H 02/28/19 04:00 Total Protein 6.3 g/dL (6.4-8.2) L 02/28/19 04:00 Albumin 3.0 g/dL (3.4-5.0) L 02/28/19 04:00 Globulin 3.3 g/dL (2.5-4.5) 02/28/19 04:00 Albumin/Globulin Ratio 0.9 Ratio (1.1-2.1) L 02/28/19 04:00 - Plan (1) Cellulitis of right foot Status: Acute Plan: IV ZOSYN, LASIX 20MG IV BID, WOUND AND BLOOD CULTURES, CONTINUE TO MONITOR
[2019-02-28] MEDS: SNACK - Diabetic Appropriate PO SCH ×2 (20:43)
[2019-03-01 05:08] LABS: BASOPHILS % (AUTO) 0.3 % (0.2-1.0); EOSINOPHILS % (AUTO) 0.5 % (0.9-2.9); HEMATOCRIT 33.5 % (42.0-54.0); HEMOGLOBIN 11.1 g/dL (13.5-18.0); LYMPHOCYTES # (AUTO) 0.7 X10^3/uL (1.3-2.9); LYMPHOCYTES % (AUTO) 12.9 % (21.0-51.0); MEAN CORPUSCULAR HEMOGLOBIN 27.4 pg (27.0-34.0); MEAN CORPUSCULAR HGB CONC 33.1 g/dL (33.0-35.0); MEAN CORPUSCULAR VOLUME 82.8 fL (80.0-100.0); MEAN PLATELET VOLUME 8.7 fL (7.4-11.0); MONOCYTES # (AUTO) 0.3 x10^3/uL (0.3-0.8); MONOCYTES % (AUTO) 5.1 % (0.0-13.0); NEUTROPHILS # (AUTO) 4.6 x10^3/uL (2.2-4.8); NEUTROPHILS % (AUTO) 81.2 % (42.0-75.0); PLATELET COUNT 127 X10^3/uL (150.0-450.0); RED BLOOD COUNT 4.05 X10^6/uL (4.7-6.0); RED CELL DISTRIBUTION WIDTH 17.6 % (11.6-16.5); WHITE BLOOD COUNT 5.7 X10^3/uL (3.6-10.0)
[2019-03-01 05:34] LABS: ALBUMIN 2.9 g/dL (3.4-5.0); CALCIUM 8.7 mg/dL (8.5-10.1); CARBON DIOXIDE 24.4 mmol/L (21-32); COR CA(FOR HYPOALB) 9.6 mg/dL (8.5-10.1); CREATININE 2.27 mg/dL (0.70-1.30); TOTAL PROTEIN 6.3 g/dL (6.4-8.2)
[2019-03-01] MEDS: NS 1000 ML 1,000 ML IV SCH (05:35)
[2019-03-01] MEDS: SYNTHROID 112 mcg TAB PO SCH (08:18)
[2019-03-01] MEDS: LOVAZA PO SCH (08:18)
[2019-03-01] MEDS: TAB-A-VITE PO SCH (08:18)
[2019-03-01] MEDS: ZOSYN VIAL 3.375 GRAMS 3.375 G in NS 100 ML IV + SPIKE MINIBAG* 100 ML IV SCH (08:19)
[2019-03-01] MEDS: PREDNISONE TAB 10 MG PO SCH (08:19)
[2019-03-01] MEDS: ZETIA TAB 10 MG PO SCH (08:19)
[2019-03-01] MEDS: COREG TAB 25 MG PO SCH (08:19)
[2019-03-01] MEDS: TACROLIMUS 0.5 MG PO SCH (08:28)
[2019-03-01] MEDS: PATIENT'S HOME MEDICATION SC SCH (08:28)
--- NOTE | 2019-03-01 09:30 | NM ---
HISTORY: Pain swelling cellulitis right foot Study: Nuclear medicine three-phase bone scan right foot Comparison: Plain films 03/10/2019 Technique: Patient received intravenous injection of 25.5 mCi technetium 99 MDP. Flow images, blood pool images, and delayed images of the feet were obtained. Findings: There is symmetric appearance of the tracer material in the feet on the flow images. There is increased tracer concentration over the dorsum of the right foot on the blood pool images. There is no abnormal tracer concentration within the bones of the right foot on the delayed images. Findings do not suggest osteomyelitis but do suggest cellulitis. If osteomyelitis is a strong consideration further evaluation could include MRI of the right foot with and without contrast. IMPRESSION: No findings to suggest active osteomyelitis right foot Findings suggestive of cellulitis right foot Reported By:
[2019-03-01 10:39] VITALS: BP 155/79
[2019-03-01] MEDS ORDERED: COUMADIN TAB 2.5 MG PO NR (16:00)
[2019-03-02] MEDS ORDERED: COUMADIN TAB 2.5 MG PO NR (16:00)
== END 2019-03-01 11:45 | disposition home or self-care (01) | DRG 603 ==
LOC: MED/SURG 12:11
PROVIDERS: ADMIT Internal Medicine; ATTEND Internal Medicine
DX: N17.9 Acute kidney failure, unspecified; E11.65 Type 2 diabetes mellitus with hyperglycemia; I10 Essential (primary) hypertension; Z94.0 Kidney transplant status; R94.4 Abnormal results of kidney function studies; Z79.01 Long term (current) use of anticoagulants; L03.115 Cellulitis of right lower limb
CPT/HCPCS: 36415; 73630; 78315; 80053; 85025; 85610; 87040; 87070; 87075; 87205; 93306; 97162; A4216; A4222; A9503; J2543; J7030; J7050; J7512

== ENCOUNTER 2019-08-09 11:06 | Inpatient (IN) ==
--- NOTE | 2019-08-09 13:15 | RAD ---
HISTORYShortness of breathSTUDYPA and lateral chestCOMPARISONJanuary 2018FINDINGSThere is unchanged moderate cardiomegaly status post CABG and mitral valve replacement. There are intact pacer and AICD wires via the left subclavian vein. There are small bilateral pleural effusions. There is mild vascular congestion.IMPRESSIONChronic and/or recurrent congestive heart failure as describedElectronically signed by: TRE CORTEZ (Aug 09, 2019 13:13:31)
[2019-08-09 13:17] LABS: BASOPHILS % (AUTO) 0.8 % (0.2-1.0); EOSINOPHILS # (AUTO) 0.1 x10^3/uL (0.0-0.2); EOSINOPHILS % (AUTO) 1.9 % (0.9-2.9); HEMOGLOBIN 11.6 g/dL (13.5-18.0); LYMPHOCYTES # (AUTO) 0.9 X10^3/uL (1.3-2.9); LYMPHOCYTES % (AUTO) 28.3 % (21.0-51.0); MEAN CORPUSCULAR HEMOGLOBIN 25.6 pg (27.0-34.0); MEAN CORPUSCULAR HGB CONC 32.2 g/dL (33.0-35.0); MEAN CORPUSCULAR VOLUME 79.4 fL (80.0-100.0); MEAN PLATELET VOLUME 7.5 fL (7.4-11.0); MONOCYTES # (AUTO) 0.3 x10^3/uL (0.3-0.8); MONOCYTES % (AUTO) 10.2 % (0.0-13.0); NEUTROPHILS # (AUTO) 1.9 x10^3/uL (2.2-4.8); NEUTROPHILS % (AUTO) 58.8 % (42.0-75.0); PLATELET COUNT 164 X10^3/uL (150.0-450.0); RED BLOOD COUNT 4.53 X10^6/uL (4.7-6.0); RED CELL DISTRIBUTION WIDTH 18.2 % (11.6-16.5); WHITE BLOOD COUNT 3.2 X10^3/uL (3.6-10.0)
[2019-08-09 13:43] LABS: CALCIUM 8.8 mg/dL (8.5-10.1); CARBON DIOXIDE 30.2 mmol/L (21-32); CKMB % 1.6 % (<4); COR CA(FOR HYPOALB) 9.6 mg/dL (8.5-10.1); CREATINE KINASE MB 2.1 ng/mL (0-4.0); CREATININE 2.35 mg/dL (0.70-1.30); TOTAL PROTEIN 6.6 g/dL (6.4-8.2); TROPONIN I 0.03 ng/mL (0-1.5)
[2019-08-09 13:45] LABS: HYPOCHROMASIA SLIGHT; PLATELET MORPHOLOGY COMMENT NORMAL (NORMAL)
[2019-08-09] MEDS: LASIX IVP SCH (13:58)
[2019-08-09] MEDS ORDERED: DUONEB 0.5 MG/3 MG (3 mL) NEB SCH ×2 (14:00→18:30)
[2019-08-09 16:42] VITALS: BMI 26.0
[2019-08-09] MEDS ORDERED: PREVNAR 13 IM ONE (16:43)
[2019-08-09] MEDS ORDERED: GENTAMICIN TOPICAL CRM ONE (17:15)
[2019-08-09 17:42] LABS: CKMB % 1.5 % (<4); TROPONIN I 0.02 ng/mL (0-1.5)
[2019-08-09] MEDS ORDERED: K-DUR TAB 20 MEQ PO ONE (20:38)
[2019-08-09] MEDS ORDERED: D50W ABBOJECT SYR ONE (20:38)
[2019-08-09] MEDS: DUONEB 0.5 MG/3 MG (3 mL) NEB SCH (20:45)
[2019-08-09] MEDS: K-DUR TAB 20 MEQ PO SCH (20:49)
[2019-08-09] MEDS: SNACK - Diabetic Appropriate PO SCH (20:50)
[2019-08-09 20:56] LABS: CKMB % 1.4 % (<4); CREATINE KINASE MB 1.7 ng/mL (0-4.0); TROPONIN I 0.03 ng/mL (0-1.5)
[2019-08-10] MEDS: LASIX IVP SCH ×3 (00:49→23:51)
[2019-08-10] MEDS ORDERED: D50W ABBOJECT SYR ONE (02:46)
[2019-08-10 06:16] LABS: BASOPHILS % (AUTO) 0.5 % (0.2-1.0); EOSINOPHILS # (AUTO) 0.1 x10^3/uL (0.0-0.2); EOSINOPHILS % (AUTO) 1.4 % (0.9-2.9); HEMATOCRIT 35.3 % (42.0-54.0); HEMOGLOBIN 11.5 g/dL (13.5-18.0); LYMPHOCYTES # (AUTO) 0.9 X10^3/uL (1.3-2.9); LYMPHOCYTES % (AUTO) 21.1 % (21.0-51.0); MEAN CORPUSCULAR HEMOGLOBIN 25.8 pg (27.0-34.0); MEAN CORPUSCULAR HGB CONC 32.6 g/dL (33.0-35.0); MEAN CORPUSCULAR VOLUME 79.2 fL (80.0-100.0); MEAN PLATELET VOLUME 7.6 fL (7.4-11.0); MONOCYTES # (AUTO) 0.4 x10^3/uL (0.3-0.8); MONOCYTES % (AUTO) 8.9 % (0.0-13.0); NEUTROPHILS # (AUTO) 2.8 x10^3/uL (2.2-4.8); NEUTROPHILS % (AUTO) 68.1 % (42.0-75.0); PLATELET COUNT 172 X10^3/uL (150.0-450.0); RED BLOOD COUNT 4.46 X10^6/uL (4.7-6.0); RED CELL DISTRIBUTION WIDTH 17.8 % (11.6-16.5); WHITE BLOOD COUNT 4.1 X10^3/uL (3.6-10.0)
[2019-08-10 06:35] LABS: HYPOCHROMASIA SLIGHT; PLATELET MORPHOLOGY COMMENT NORMAL (NORMAL)
[2019-08-10 06:40] LABS: ALANINE AMINOTRANSFERASE 23 Units/L (12-78); ALKALINE PHOSPHATASE 137 Units/L (46-116); ASPARTATE AMINO TRANSFERASE 22 Units/L (15-37); BLOOD UREA NITROGEN 24 mg/dL (7-18); CALCIUM 8.7 mg/dL (8.5-10.1); CARBON DIOXIDE 30.3 mmol/L (21-32); CHLORIDE 105 mmol/L (98-107); COR CA(FOR HYPOALB) 9.5 mg/dL (8.5-10.1); CREATININE 2.15 mg/dL (0.70-1.30); SODIUM 141 mmol/L (136-145); TOTAL PROTEIN 6.6 g/dL (6.4-8.2); eGFR NON BLACK RACES 32 (>60)
[2019-08-10] MEDS: K-DUR TAB 20 MEQ PO SCH (08:33)
[2019-08-10] MEDS: GENTAMICIN TOPICAL CRM TOP SCH ×2 (08:35→08:39)
[2019-08-10] MEDS: DUONEB 0.5 MG/3 MG (3 mL) NEB SCH ×4 (09:08→20:10)
--- NOTE | 2019-08-10 10:52 | DR.UPDATE ---
H&P Update History and Physical Update: History and Physical reviewed and patient examined. Changes noted: Yes with the following: PRESENTE TO THE OFFICE WITH COMPLAINTS OF SHORTNESS OF BREATH AND LABORED BREATHING. HE ALSO REPORTED SWELLING TO LOWER EXTREMETIES. HE REPORTS INCREASING HIS LASIX WITH NO RESULTS. HE ALSO REPORTS CHEST DISCOMFORT AND COUGH. HE WAS ADMITTED FOR FURTHER EVALUATION AND TREATMENT OF CHF EXACERBATION AND CHEST PAIN. ON ADMISSION, WE WILL OBTAIN LABS, AN ECHO, CHEST XRAY, CARDIAC ENZYMES, AND EKGS. WE WILL START RESPIRATORY TX, LASIX 40MG IV Q12H, HUMULIN R SLDIING SCALE, AND WILL REVIEW HIS HOME MEDICATIONS. OTHERWISE, WE WILL FOLLOW UP WITH AM LABS AND CONTINUE TO MONITOR. Prescription drug monitoring program results: PDMP was not reviewed H&P Reviewed: Yes Patient was examined?: Yes
[2019-08-10] MEDS ORDERED: TACROLIMUS 1 MG PO SCH (11:00)
[2019-08-10] MEDS ORDERED: COUMADIN TAB 5 MG PO SCH (11:00)
[2019-08-10] MEDS: PATIENT'S HOME MEDICATION PO SCH ×2 (11:49→21:02)
[2019-08-10] MEDS: PREDNISONE TAB 10 MG PO SCH (11:56)
[2019-08-10] MEDS: SYNTHROID 112 mcg TAB PO SCH (11:56)
[2019-08-10] MEDS: ZETIA TAB 10 MG PO SCH (11:58)
[2019-08-10] MEDS: COREG TAB 25 MG PO SCH ×2 (14:15→21:02)
[2019-08-10] MEDS: SNACK - Diabetic Appropriate PO SCH (20:30)
[2019-08-11] MEDS ORDERED: D50W ABBOJECT SYR ONE (05:41)
--- NOTE | 2019-08-11 06:08 | RAD ---
HISTORYSOB, CHFSTUDYCHEST, 1 [id number] size is moderately enlarged, unchanged. Previous CABG and mitral valve placed there is increasing consolidation within the right lung base. Reticular opacities within the left lung base are slightly more conspicuous. Chronic interstitial lung changes and pulmonary vascular congestion are again noted.IMPRESSIONIncreasing consolidation within the right lung base represents developing infiltrate and/or pleural effusion.Linear opacity within left lung base likely represents subsegmental atelectasis; however additional infiltrate or aspiration are considerations.Stable cardiomegaly post CABG and valve replacement.Electronically signed by: BAM SHIRLEY (Aug 11, 2019 06:06:46)
[2019-08-11 06:22] LABS: BASOPHILS % (AUTO) 0.5 % (0.2-1.0); EOSINOPHILS % (AUTO) 0.5 % (0.9-2.9); HEMATOCRIT 34.9 % (42.0-54.0); HEMOGLOBIN 11.4 g/dL (13.5-18.0); LYMPHOCYTES # (AUTO) 0.6 X10^3/uL (1.3-2.9); LYMPHOCYTES % (AUTO) 13.5 % (21.0-51.0); MEAN CORPUSCULAR HEMOGLOBIN 25.8 pg (27.0-34.0); MEAN CORPUSCULAR HGB CONC 32.8 g/dL (33.0-35.0); MEAN CORPUSCULAR VOLUME 78.8 fL (80.0-100.0); MEAN PLATELET VOLUME 7.6 fL (7.4-11.0); MONOCYTES # (AUTO) 0.5 x10^3/uL (0.3-0.8); MONOCYTES % (AUTO) 10.5 % (0.0-13.0); NEUTROPHILS # (AUTO) 3.5 x10^3/uL (2.2-4.8); PLATELET COUNT 176 X10^3/uL (150.0-450.0); RED BLOOD COUNT 4.43 X10^6/uL (4.7-6.0); RED CELL DISTRIBUTION WIDTH 17.8 % (11.6-16.5); WHITE BLOOD COUNT 4.7 X10^3/uL (3.6-10.0)
[2019-08-11 06:42] LABS: PLATELET MORPHOLOGY COMMENT NORMAL (NORMAL)
[2019-08-11 06:45] LABS: HYPOCHROMASIA SLIGHT
[2019-08-11 06:46] LABS: ANISOCYTOSIS SLIGHT; CALCIUM 8.9 mg/dL (8.5-10.1); CARBON DIOXIDE 31.5 mmol/L (21-32); COR CA(FOR HYPOALB) 9.7 mg/dL (8.5-10.1); CREATININE 2.04 mg/dL (0.70-1.30); TOTAL PROTEIN 6.6 g/dL (6.4-8.2)
[2019-08-11] MEDS: DUONEB 0.5 MG/3 MG (3 mL) NEB SCH ×4 (08:43→20:23)
[2019-08-11] MEDS ORDERED: COUMADIN TAB 2.5 MG PO SCH (09:00)
[2019-08-11] MEDS: PREDNISONE TAB 10 MG PO SCH (09:24)
[2019-08-11] MEDS: COREG TAB 25 MG PO SCH ×2 (09:24→21:16)
[2019-08-11] MEDS: PATIENT'S HOME MEDICATION PO SCH ×2 (09:24→21:14)
[2019-08-11] MEDS: K-DUR TAB 20 MEQ PO SCH (09:24)
[2019-08-11] MEDS: GENTAMICIN TOPICAL CRM TOP SCH (09:24)
[2019-08-11] MEDS: SYNTHROID 112 mcg TAB PO SCH (09:24)
[2019-08-11] MEDS: ZETIA TAB 10 MG PO SCH (09:25)
[2019-08-11] MEDS: TAMIFLU PO SCH (11:40)
[2019-08-11] MEDS: HumuLIN R SUBCUT PRN ×2 (17:52→21:47)
[2019-08-11] MEDS: SNACK - Diabetic Appropriate PO SCH (21:10)
[2019-08-11] MEDS: COUMADIN TAB 2.5 MG PO SCH (21:16)
[2019-08-11] MEDS: COUMADIN TAB 5 MG PO SCH (21:18)
--- NOTE | 2019-08-11 22:21 | PCM.PROG ---
Progress Note - Progress Note for Day of Date of Exam: 08/11/19 - Subjective Subjective: IS BEING TREATED FOR AN ACUTE CHF EXACERBATION AND CHEST PAIN. TODAY, HE IS ALERT AND ORIENTED, LYING IN BED ON MORNING ROUNDS. HE CONTINUES WITH COMPLAINTS OF COUGH AND SHORTNESS OF BREATH TODAY. HE ALSO CONTINUES WITH LOWER EXTREMITY SWELLING. ON EXAMINATION, HEART IS REGULAR IN RA TE AND RHYTHM. BILATERAL LUNGS ARE NOTED WITH DIMINISHED LUNG SOUNDS THROUGHOUT. ABDOMEN IS ROUND, SOFT, AND NON-TENDER WITH NORMAL BOWEL SOUNDS NOTED IN ALL QUADRANTS. HIS VITALS THIS MORNING ARE: 99.4-76-22-98%-115/59. LABS WERE OBTAINED. ABNORMAL LAB VALUES INCLUDE THE FOLLOWING: RBC 4.43, HGB 11.4, HCT 34.9, BUN 28, CREATININE 2.04, GLUCOSE 118, ALK PHOS 129, ALBUMIN 3.0. A CHEST XRAY WAS OBTAINED AND REVEALED: Increasing consolidation within the right lung base represents developing infiltrate and/or pleural effusion. Linear opacity within left lung base likely represents subsegmental atelectasis; however additional infiltrate or aspiration are considerations. Stable cardiomegaly post CABG and valve replacement. HE IS FOLLOWED BY FOR CHRONIC KIDNEY DISEASE AND , [employer]. WE SPOKE WITH BOTH PHYSICIANS TODAY REGUARDING PATIENTS CONDITION AND PLAN OF CARE. WE DISCUSSED PLAN OF CARE WITH PATIENT. OUR PLANS ARE TO HAVE PATIENT FOLLOW UP WITH HIS SPECIALIST AFTER DISCHARGE. WE SPENT APPROXIMATELY 20 MINUTES ON THE PHONE AND WITH PATIENT GOING OVER PLAN OF CARE. TODAY, WE WILL CONTINUE WITH HIS LASIX AND CURRENT PLAN OF CARE. WE WILL START TAMIFLU 75MG PO DAILY FOR PROPHYLAXIS. OTHERWISE, WE WILL FOLLOW UP WITH AM LABS AND CHEST XRAY AND CONTINUE TO MONITOR. - Past Medical Family Social History Past Med/Fam/Surg Hx: No changes since H&P Allergies: Allergies atorvastatin [From Lipitor] Allergy (Verified 08/09/19 13:35) codeine Allergy (Verified 08/09/19 13:35) - Review of Systems ROS: No change since H&P - Vital Signs and I&O's Vital Signs: Temperature 98.4 F Pulse Rate [Left Brachial] 81 Pulse Rate 78 Respiratory Rate 20 Blood Pressure [Right Arm] 133/64 Blood Pressure [Left Arm] 151/70 O2 Sat by Pulse Oximetry 96 Intake and Output: Intake & Output 0108/10/19 08/11/19 08/12/19 11:59 11:59 11:59 11:59 Intake Total 1203 / 1203 1383 / 1383 420 / 420 Output Total 1325 / 1325 2550 / 2550 450 / 450 Balance -122 / -122 -1167 / -1167 -30 / -30 - Physical Exam Oriented: Normal Eyes: Normal Ear: Normal Nose: Normal Throat: Normal Respiratory: Generalized, Diminished Cardiovascular: Edema (1+ PITTING EDEMA TO LOWER EXTREMITIES ) : Normal Auscultation: Bowel Sounds: Normal Palpation: Normal Tenderness: Normal Skin: Normal Musculoskeletal: Normal Psychiatric: Normal Mood Description: Calm Affect: Normal Speech Pattern: Clear, Appropriate - Laboratory and Diagnostics Result Diagrams: 08/11/19 05:55 08/11/19 05:55 Labs: Laboratory WBC 4.7 X10^3/uL (3.6-10.0) 08/11/19 05:55 RBC 4.43 X10^6/uL (4.7-6.0) L 08/11/19 05:55 Hgb 11.4 g/dL (13.5-18.0) L 08/11/19 05:55 Hct 34.9 % (42.0-54.0) L 08/11/19 05:55 MCV 78.8 fL (80.0-100.0) L 08/11/19 05:55 MCH 25.8 pg (27.0-34.0) L 08/11/19 05:55 MCHC 32.8 g/dL (33.0-35.0) L 08/11/19 05:55 RDW 17.8 % (11.6-16.5) H 08/11/19 05:55 Plt Count 176 X10^3/uL (150.0-450.0) 08/11/19 05:55 Plt Count Comment Adequate (ADEQUATE) 08/11/19 05:55 MPV 7.6 fL (7.4-11.0) 08/11/19 05:55 Neut % (Auto) 75.0 % (42.0-75.0) 08/11/19 05:55 Lymph % (Auto) 13.5 % (21.0-51.0) L 08/11/19 05:55 [place] % (Auto) 10.5 % (0.0-13.0) 08/11/19 05:55 Eos % (Auto) 0.5 % (0.9-2.9) L 08/11/19 05:55 Baso % (Auto) 0.5 % (0.2-1.0) 08/11/19 05:55 Neut # (Auto) 3.5 x10^3/uL (2.2-4.8) 08/11/19 05:55 Lymph # (Auto) 0.6 X10^3/uL (1.3-2.9) L 08/11/19 05:55 [place] # (Auto) 0.5 x10^3/uL (0.3-0.8) 08/11/19 05:55 Eos # (Auto) 0.0 x10^3/uL (0.0-0.2) 08/11/19 05:55 Baso # (Auto) 0.0 X10^3/uL (0.0-0.1) 08/11/19 05:55 Absolute Nucleated RBC 0.1 /100WBC 08/11/19 05:55 Plt Morphology Comment Normal (NORMAL) 08/11/19 05:55 RBC Morphology Abnormal (NORMAL) 08/11/19 05:55 Hypochromasia Slight A 08/11/19 05:55 Anisocytosis Slight A 08/11/19 05:55 PT 31.4 SECONDS (11.8-14.3) 08/09/19 13:07 INR Target Range - 08/09/19 13:07 INR 3.15 (0.8-1.3) H 08/09/19 13:07 APTT 44.8 SECONDS (22.9-36.5) H 08/09/19 13:07 PTT Comment - 08/09/19 13:07 Sodium 141 mmol/L (136-145) 08/11/19 05:55 Corrected Sodium 141 mmol/L (136-145) 08/11/19 05:55 Potassium 4.2 mmol/L (3.5-5.1) 08/11/19 05:55 Chloride 103 mmol/L (98-107) 08/11/19 05:55 Carbon Dioxide 31.5 mmol/L (21-32) 08/11/19 05:55 BUN 28 mg/dL (7-18) H 08/11/19 05:55 Creatinine 2.04 mg/dL (0.70-1.30) H 08/11/19 05:55 Est GFR (MDRD) Af Amer 41 (>60) L 08/11/19 05:55 Est GFR (MDRD) Non-Af 34 (>60) L 08/11/19 05:55 Glucose 118 mg/dL (65-99) H 08/11/19 05:55 POC Glucose (mg/dL) 108 mg/dL (65-99) H 08/09/19 21:40 Calcium 8.9 mg/dL (8.5-10.1) 08/11/19 05:55 Corrected Calcium 9.7 mg/dL (8.5-10.1) 08/11/19 05:55 Total Bilirubin 0.80 mg/dL (0.2-1.0) 08/11/19 05:55 AST 20 Units/L (15-37) 08/11/19 05:55 ALT 22 Units/L (12-78) 08/11/19 05:55 Alkaline Phosphatase 129 Units/L (46-116) H 08/11/19 05:55 Creatine Kinase 124 Units/L (39-308) 08/09/19 20:28 CK-MB (CK-2) 1.7 ng/mL (0-4.0) 08/09/19 20:28 CK/CKMB % Calc 1.4 % (<4) 08/09/19 20:28 Troponin I 0.03 ng/mL (0-1.5) 08/09/19 20:28 B-Natriuretic Peptide 1630 pg/mL (0-79) H* 08/10/19 05:53 Total Protein 6.6 g/dL (6.4-8.2) 08/11/19 05:55 Albumin 3.0 g/dL (3.4-5.0) L 08/11/19 05:55 Globulin 3.6 g/dL (2.5-4.5) 08/11/19 05:55 Albumin/Globulin Ratio 0.8 Ratio (1.1-2.1) L 08/11/19 05:55 - Plan (1) Congestive heart failure Status: Acute Qualifiers: Heart failure chronicity: acute on chronic Plan: IV LASIX, RESPIRATORY TX, SUPPLEMENTAL OXYGEN, CONTINUE TO MONITOR (2) Chest pain, rule out acute myocardial infarction Status: Acute Plan: CONTINUE TO MONITOR (3) Chronic kidney disease Status: Chronic Qualifiers: Chronic kidney disease stage: unspecified stage Qualified Code(s): N18.9 - Chronic kidney disease, unspecified Plan: CONTINUE TO MONITOR
[2019-08-12 06:39] LABS: BASOPHILS % (AUTO) 0.4 % (0.2-1.0); EOSINOPHILS % (AUTO) 0.9 % (0.9-2.9); HEMOGLOBIN 10.9 g/dL (13.5-18.0); LYMPHOCYTES # (AUTO) 0.5 X10^3/uL (1.3-2.9); LYMPHOCYTES % (AUTO) 12.6 % (21.0-51.0); MEAN CORPUSCULAR HEMOGLOBIN 25.8 pg (27.0-34.0); MEAN CORPUSCULAR HGB CONC 33.1 g/dL (33.0-35.0); MEAN CORPUSCULAR VOLUME 78.1 fL (80.0-100.0); MEAN PLATELET VOLUME 7.8 fL (7.4-11.0); MONOCYTES # (AUTO) 0.5 x10^3/uL (0.3-0.8); MONOCYTES % (AUTO) 11.5 % (0.0-13.0); NEUTROPHILS # (AUTO) 3.3 x10^3/uL (2.2-4.8); NEUTROPHILS % (AUTO) 74.6 % (42.0-75.0); PLATELET COUNT 161 X10^3/uL (150.0-450.0); RED BLOOD COUNT 4.22 X10^6/uL (4.7-6.0); RED CELL DISTRIBUTION WIDTH 17.4 % (11.6-16.5); WHITE BLOOD COUNT 4.4 X10^3/uL (3.6-10.0)
[2019-08-12 06:59] LABS: ALBUMIN 2.8 g/dL (3.4-5.0); ANISOCYTOSIS SLIGHT; CALCIUM 9.1 mg/dL (8.5-10.1); CARBON DIOXIDE 30.1 mmol/L (21-32); COR CA(FOR HYPOALB) 10.1 mg/dL (8.5-10.1); CREATININE 2.13 mg/dL (0.70-1.30); HYPOCHROMASIA SLIGHT; PLATELET MORPHOLOGY COMMENT NORMAL (NORMAL); TOTAL PROTEIN 6.4 g/dL (6.4-8.2)
--- NOTE | 2019-08-12 07:31 | RAD ---
HISTORYSOBSTUDYCHEST, 1 [id number]/20FINDINGSTrachea is midline. Heart size remains enlarged post CABG and valve replacement. Stable positioning of left chest wall pacemaker. Persistent dense airspace consolidation noted within the right lung base with increasing bilateral peribronchial thickening and ground-glass opacities. Bilateral, right larger than left pleural effusions. No pneumothoraxIMPRESSIONStable cardiomegaly with persistent dense airspace consolidation in the right lung base with increasing bilateral peribronchial thickening and peribronchial ground-glass opacities. Correlate for signs of CHF or infection.Right larger than left bilateral pleural effusions.Electronically signed by: BAM SHIRLEY (Aug 12, 2019 07:30:41)
[2019-08-12] MEDS: DUONEB 0.5 MG/3 MG (3 mL) NEB SCH ×4 (08:43→20:33)
[2019-08-12] MEDS: ROCEPHIN VIAL 1 GRAM 1 G in NS 100 ML IV + SPIKE MINIBAG* 100 ML IV SCH (09:03)
[2019-08-12] MEDS: GENTAMICIN TOPICAL CRM TOP SCH (09:04)
[2019-08-12] MEDS: PATIENT'S HOME MEDICATION PO SCH ×2 (09:04→20:53)
[2019-08-12] MEDS: SYNTHROID 112 mcg TAB PO SCH (09:05)
[2019-08-12] MEDS: TAMIFLU PO SCH (09:05)
[2019-08-12] MEDS: ZETIA TAB 10 MG PO SCH (09:06)
[2019-08-12] MEDS: PREDNISONE TAB 10 MG PO SCH (09:06)
[2019-08-12] MEDS: COREG TAB 25 MG PO SCH ×2 (09:07→20:52)
[2019-08-12] MEDS ORDERED: NS 250 ML IV 250 ML IV ONE (09:13)
[2019-08-12] MEDS: K-DUR TAB 20 MEQ PO SCH (09:16)
[2019-08-12] MEDS: LASIX IVP SCH ×2 (10:58→20:52)
[2019-08-12] MEDS: HumuLIN R SUBCUT PRN ×3 (14:20→22:00)
[2019-08-12] MEDS: SNACK - Diabetic Appropriate PO SCH (20:50)
[2019-08-12] MEDS: COUMADIN TAB 5 MG PO SCH (20:51)
[2019-08-12] MEDS: COUMADIN TAB 2.5 MG PO SCH (20:51)
--- NOTE | 2019-08-12 21:17 | PCM.PROG ---
Progress Note - Progress Note for Day of Date of Exam: 08/12/19 - Subjective Subjective: WAS ADMITTED FOR TREATMENT OF ACUTE CHF EXACERBATION AND CHEST PAIN. TODAY, HE IS ALERT AND ORIENTED, LYING IN BED ON MORNING ROUNDS. HE CONTINUES WITH COMPLAINTS OF COUGH AND SHORTNESS OF BREATH TODAY. HE ALSO CONTINUES WITH LOWER EXTREMITY SWELLING. HE DENIES CHEST PAIN THIS MORNING. ON EXAMINATION, HEART IS REGULAR IN RATE AND RHYTHM. BILATERAL LUNGS ARE NOTED WITH DIMINISHED LUNG SOUNDS THROUGHOUT. ABDOMEN IS ROUND, SOFT, AND NON-TENDER WITH NORMAL BOWEL SOUNDS NOTED IN ALL QUADRANTS. HIS VITALS THIS MORNING ARE: 98.3-77-22-100%-122/56. LABS WERE OBTAINED. ABNORMAL LAB VALUES INCLUDE THE FOLLOWING: RBC 4.22, HGB 10.9, HCT 33.0, BUN 39, CREATININE 2.13, GLUCOSE 207, ALK PHOS 123, ALBUMIN 2.8. A CHEST XRAY WAS OBTAINED AND REVEALED: Stable cardiomegaly with persistent dense airspace consolidation in the right lung base with increasing bilateral peribronchial thickening and peribronchial ground- glass opacities. Correlate for signs of CHF or infection. Right larger than left bilateral pleural effusions. TODAY, WE WILL CONTINUE WITH HIS LASIX , TAMIFLU, AND CURRENT PLAN OF CARE TODAY. WE WILL HEPLOCK IV FLUIDS AND ORDER FOR HIM TO WEAR THE BIPAP AT BEDTIME AND NEEDED. OTHERWISE, WE WILL FOLLOW UP WITH AM LABS AND CHEST XRAY AND CONTINUE TO MONITOR. - Past Medical Family Social History Past Med/Fam/Surg Hx: No changes since H&P Allergies: Allergies atorvastatin [From Lipitor] Allergy (Verified 08/09/19 13:35) codeine Allergy (Verified 08/09/19 13:35) - Review of Systems ROS: No change since H&P - Vital Signs and I&O's Vital Signs: Temperature 98.5 F Pulse Rate [Left Brachial] 74 Pulse Rate 68 Respiratory Rate 26 Blood Pressure [Right Arm] 133/64 Blood Pressure [Left Arm] 136/65 O2 Sat by Pulse Oximetry 99 Intake and Output: Intake & Output 08/10/19 08/11/19 08/12/19 08/13/19 11:59 11:59 11:59 11:59 Intake Total 1203 / 1203 1383 / 1383 840 / 840 380 / 380 Output Total 1325 / 1325 2550 / 2550 1300 / 1300 350 / 350 Balance -122 / -122 -1167 / -1167 -460 / -460 - Physical Exam Oriented: Normal Eyes: Normal Ear: Normal Nose: Normal Throat: Normal Respiratory: Generalized, Diminished Cardiovascular: Edema (1+ PITTING EDEMA TO LOWER EXTREMITIES ) : Normal Auscultation: Bowel Sounds: Normal Palpation: Normal Tenderness: Normal Skin: Normal Musculoskeletal: Normal Psychiatric: Normal Mood Description: Calm Affect: Normal Speech Pattern: Clear, Appropriate - Laboratory and Diagnostics Result Diagrams: 08/12/19 05:34 08/12/19 05:34 Labs: 08/12/19 16:59 Sputum - Expectorated Sputum - Final Laboratory WBC 4.4 X10^3/uL (3.6-10.0) 08/12/19 05:34 RBC 4.22 X10^6/uL (4.7-6.0) L 08/12/19 05:34 Hgb 10.9 g/dL (13.5-18.0) L 08/12/19 05:34 Hct 33.0 % (42.0-54.0) L 08/12/19 05:34 MCV 78.1 fL (80.0-100.0) L 08/12/19 05:34 MCH 25.8 pg (27.0-34.0) L 08/12/19 05:34 MCHC 33.1 g/dL (33.0-35.0) 08/12/19 05:34 RDW 17.4 % (11.6-16.5) H 08/12/19 05:34 Plt Count 161 X10^3/uL (150.0-450.0) 08/12/19 05:34 Plt Count Comment Adequate (ADEQUATE) 08/12/19 05:34 MPV 7.8 fL (7.4-11.0) 08/12/19 05:34 Neut % (Auto) 74.6 % (42.0-75.0) 08/12/19 05:34 Lymph % (Auto) 12.6 % (21.0-51.0) L 08/12/19 05:34 [place] % (Auto) 11.5 % (0.0-13.0) 08/12/19 05:34 Eos % (Auto) 0.9 % (0.9-2.9) 08/12/19 05:34 Baso % (Auto) 0.4 % (0.2-1.0) 08/12/19 05:34 Neut # (Auto) 3.3 x10^3/uL (2.2-4.8) 08/12/19 05:34 Lymph # (Auto) 0.5 X10^3/uL (1.3-2.9) L 08/12/19 05:34 [place] # (Auto) 0.5 x10^3/uL (0.3-0.8) 08/12/19 05:34 Eos # (Auto) 0.0 x10^3/uL (0.0-0.2) 08/12/19 05:34 Baso # (Auto) 0.0 X10^3/uL (0.0-0.1) 08/12/19 05:34 Absolute Nucleated RBC 0.0 /100WBC 08/12/19 05:34 Plt Morphology Comment Normal (NORMAL) 08/12/19 05:34 RBC Morphology Abnormal (NORMAL) 08/12/19 05:34 Hypochromasia Slight A 08/12/19 05:34 Anisocytosis Slight A 08/12/19 05:34 PT 31.4 SECONDS (11.8-14.3) 08/09/19 13:07 INR Target Range - 08/09/19 13:07 INR 3.15 (0.8-1.3) H 08/09/19 13:07 APTT 44.8 SECONDS (22.9-36.5) H 08/09/19 13:07 PTT Comment - 08/09/19 13:07 Sodium 137 mmol/L (136-145) 08/12/19 05:34 Corrected Sodium 140 mmol/L (136-145) 08/12/19 05:34 Potassium 4.8 mmol/L (3.5-5.1) 08/12/19 05:34 Chloride 102 mmol/L (98-107) 08/12/19 05:34 Carbon Dioxide 30.1 mmol/L (21-32) 08/12/19 05:34 BUN 39 mg/dL (7-18) H 08/12/19 05:34 Creatinine 2.13 mg/dL (0.70-1.30) H 08/12/19 05:34 Est GFR (MDRD) Af Amer 39 (>60) L 08/12/19 05:34 Est GFR (MDRD) Non-Af 32 (>60) L 08/12/19 05:34 Glucose 207 mg/dL (65-99) H 08/12/19 05:34 POC Glucose (mg/dL) 161 mg/dL (65-99) H 08/12/19 02:17 Calcium 9.1 mg/dL (8.5-10.1) 08/12/19 05:34 Corrected Calcium 10.1 mg/dL (8.5-10.1) 08/12/19 05:34 Total Bilirubin 0.60 mg/dL (0.2-1.0) 08/12/19 05:34 AST 17 Units/L (15-37) 08/12/19 05:34 ALT 20 Units/L (12-78) 08/12/19 05:34 Alkaline Phosphatase 123 Units/L (46-116) H 08/12/19 05:34 Creatine Kinase 124 Units/L (39-308) 08/09/19 20:28 CK-MB (CK-2) 1.7 ng/mL (0-4.0) 08/09/19 20:28 CK/CKMB % Calc 1.4 % (<4) 08/09/19 20:28 Troponin I 0.03 ng/mL (0-1.5) 08/09/19 20:28 B-Natriuretic Peptide 1630 pg/mL (0-79) H* 08/10/19 05:53 Total Protein 6.4 g/dL (6.4-8.2) 08/12/19 05:34 Albumin 2.8 g/dL (3.4-5.0) L 08/12/19 05:34 Globulin 3.6 g/dL (2.5-4.5) 08/12/19 05:34 Albumin/Globulin Ratio 0.8 Ratio (1.1-2.1) L 08/12/19 05:34 - Plan (1) Congestive heart failure Status: Acute Qualifiers: Heart failure chronicity: acute on chronic Plan: IV LASIX, BIPAP, RESPIRATORY TX, SUPPLEMENTAL OXYGEN, CONTINUE TO MONITOR (2) Chest pain, rule out acute myocardial infarction Status: Acute Plan: CONTINUE TO MONITOR (3) Chronic kidney disease Status: Chronic Qualifiers: Chronic kidney disease stage: unspecified stage Qualified Code(s): N18.9 - Chronic kidney disease, unspecified Plan: CONTINUE TO MONITOR
[2019-08-13 06:15] LABS: BASOPHILS % (AUTO) 0.7 % (0.2-1.0); EOSINOPHILS % (AUTO) 1.2 % (0.9-2.9); HEMATOCRIT 33.4 % (42.0-54.0); HEMOGLOBIN 10.8 g/dL (13.5-18.0); LYMPHOCYTES # (AUTO) 0.6 X10^3/uL (1.3-2.9); MEAN CORPUSCULAR HEMOGLOBIN 25.6 pg (27.0-34.0); MEAN CORPUSCULAR HGB CONC 32.4 g/dL (33.0-35.0); MEAN PLATELET VOLUME 7.8 fL (7.4-11.0); MONOCYTES # (AUTO) 0.4 x10^3/uL (0.3-0.8); NEUTROPHILS # (AUTO) 2.8 x10^3/uL (2.2-4.8); NEUTROPHILS % (AUTO) 71.1 % (42.0-75.0); PLATELET COUNT 170 X10^3/uL (150.0-450.0); RED BLOOD COUNT 4.22 X10^6/uL (4.7-6.0); RED CELL DISTRIBUTION WIDTH 17.6 % (11.6-16.5); WHITE BLOOD COUNT 3.9 X10^3/uL (3.6-10.0)
[2019-08-13] MEDS: HumuLIN R SUBCUT PRN ×4 (06:34→20:29)
[2019-08-13 06:36] LABS: ALBUMIN 2.8 g/dL (3.4-5.0); CALCIUM 9.4 mg/dL (8.5-10.1); CARBON DIOXIDE 30.4 mmol/L (21-32); COR CA(FOR HYPOALB) 10.4 mg/dL (8.5-10.1); CREATININE 2.37 mg/dL (0.70-1.30); TOTAL PROTEIN 6.4 g/dL (6.4-8.2)
[2019-08-13 06:41] LABS: HYPOCHROMASIA SLIGHT; PLATELET MORPHOLOGY COMMENT NORMAL (NORMAL)
--- NOTE | 2019-08-13 07:46 | RAD ---
HISTORYSOB, CHFSTUDYPortable AP [id number] cardiomegaly with post surgical findings and stable positi on of pacing device. Extensive opacity right base again noted consistent with any combination of pleu ral fluid and lower lobe airspace disease. The left lung is relatively clear although the retrocardia c area is partly obscured.IMPRESSIONContinued cardiomegaly. Persistent opacity right base most consis tent with pneumonia and probable pleural fluid. Mild central pulmonary vascular congestion is suggest ed.Electronically signed by: CHUCK CHE (Aug 13, 2019 07:45:19)
[2019-08-13] MEDS: DUONEB 0.5 MG/3 MG (3 mL) NEB SCH ×4 (08:33→20:09)
[2019-08-13] MEDS: LASIX IVP SCH (09:16)
[2019-08-13] MEDS: ROCEPHIN VIAL 1 GRAM 1 G in NS 100 ML IV + SPIKE MINIBAG* 100 ML IV SCH (09:16)
[2019-08-13] MEDS: COREG TAB 25 MG PO SCH ×2 (09:17→20:28)
[2019-08-13] MEDS: SYNTHROID 112 mcg TAB PO SCH (09:17)
[2019-08-13] MEDS: PATIENT'S HOME MEDICATION PO SCH ×2 (09:17→20:28)
[2019-08-13] MEDS: GENTAMICIN TOPICAL CRM TOP SCH (09:17)
[2019-08-13] MEDS: PREDNISONE TAB 10 MG PO SCH (09:17)
[2019-08-13] MEDS: TAMIFLU PO SCH (09:17)
[2019-08-13] MEDS: ZETIA TAB 10 MG PO SCH (09:18)
[2019-08-13] MEDS: K-DUR TAB 20 MEQ PO SCH (09:18)
[2019-08-13] MEDS: DIFLUCAN 200 MG IV PREMIX* 100 MG/50 ML BAG IV SCH (10:51)
[2019-08-13] MEDS ORDERED: LEVAQUIN PREMIX IV 500 MG 500 MG/100 ML BAG IV SCH (11:00)
[2019-08-13] MEDS: NS 1000 ML 1,000 ML IV SCH (12:33)
[2019-08-13] MEDS: FORTAZ or TAZICEF VIAL INJ 2 G in NS 100 ML IV + SPIKE MINIBAG* 100 ML IV SCH (13:25)
[2019-08-13] MEDS: SNACK - Diabetic Appropriate PO SCH (20:27)
--- NOTE | 2019-08-13 21:03 | PCM.PROG ---
Progress Note - Progress Note for Day of Date of Exam: 08/13/19 - Subjective Subjective: WAS ADMITTED FOR TREATMENT OF ACUTE CHF EXACERBATION AND CHEST PAIN. TODAY, HE IS ALERT AND ORIENTED, LYING IN BED ON MORNING ROUNDS. HE CONTINUES WITH COMPLAINTS OF COUGH AND SHORTNESS OF BREATH TODAY. LOWER EXTREMITY SWELLING HAS DECREASED. HE DENIES CHEST PAIN THIS MORNING. ON EXA MINATION, HEART IS REGULAR IN RATE AND RHYTHM. BILATERAL LUNGS ARE NOTED WITH DIMINISHED LUNG SOUNDS THROUGHOUT. ABDOMEN IS ROUND, SOFT, AND NON-TENDER WITH NORMAL BOWEL SOUNDS NOTED IN ALL QUADRANTS. HIS VITALS THIS MORNING ARE: 97.7-71-20-97%-117/59. LABS WERE OBTAINED. ABNORMAL LAB VALUES INCLUDE THE FOLLOWING: RBC 4.22, HGB 10.8, HCT 33.4, INR 4.31, BUN 47, CREATININE 2.37, GLUCOSE 285, AST 13, ALBUMIN 2.8. A CHEST XRAY WAS OBTAINED AND REVEALED: Continued cardiomegaly. Persistent opacity right base most consistent with pneumonia and probable pleural fluid. Mild central pulmonary vascular congestion is suggested. BLOOD AND SPUTUM CULTURES WERE OBTAINED. TODAY, WE WILL HOLD LASIX AND RESUME IV FLUIDS DUE TO INCREASED KIDNEY FUNCTION. WE WILL DISCONTINUE THE ROCEPHIN AND START IV FORTAZ, IV LEVAQUIN, AND DIFLUCAN, PHARMACY TO DOSE. OTHERWISE, WE WILL FOLLOW UP WITH AM LABS AND CHEST XRAY AND CONTINUE TO MONITOR. - Past Medical Family Social History Past Med/Fam/Surg Hx: No changes since H&P Allergies: Allergies atorvastatin [From Lipitor] Allergy (Verified 08/09/19 13:35) codeine Allergy (Verified 08/09/19 13:35) - Review of Systems ROS: No change since H&P - Vital Signs and I&O's Vital Signs: Temperature 98.4 F Pulse Rate [Left Brachial] 75 Pulse Rate 80 Respiratory Rate 20 Blood Pressure [Right Arm] 133/64 Blood Pressure [Left Arm] 160/79 O2 Sat by Pulse Oximetry 98 Intake and Output: Intake & Output 08/11/19 08/12/19 08/13/19 08/14/19 11:59 11:59 11:59 11:59 Intake Total 1383 / 1383 840 / 840 640 / 640 1316 / 1316 Output Total 2550 / 2550 1300 / 1300 1150 / 1150 700 / 700 Balance -1167 / -1167 -460 / -460 -510 / -510 616 / 616 - Physical Exam Oriented: Normal Eyes: Normal Ear: Normal Nose: Normal Throat: Normal Respiratory: Generalized, Diminished Cardiovascular: Edema (1+ PITTING EDEMA TO LOWER EXTREMITIES ) : Normal Auscultation: Bowel Sounds: Normal Palpation: Normal Tenderness: Normal Skin: Normal Musculoskeletal: Normal Psychiatric: Normal Mood Description: Calm Affect: Normal Speech Pattern: Clear, Appropriate - Laboratory and Diagnostics Result Diagrams: 08/13/19 05:34 08/13/19 05:34 Labs: 08/12/19 16:59 Sputum - Expectorated Sputum Sputum Culture - Preliminary 08/12/19 16:59 Sputum - Expectorated Sputum - Final Laboratory WBC 3.9 X10^3/uL (3.6-10.0) 08/13/19 05:34 RBC 4.22 X10^6/uL (4.7-6.0) L 08/13/19 05:34 Hgb 10.8 g/dL (13.5-18.0) L 08/13/19 05:34 Hct 33.4 % (42.0-54.0) L 08/13/19 05:34 MCV 79.0 fL (80.0-100.0) L 08/13/19 05:34 MCH 25.6 pg (27.0-34.0) L 08/13/19 05:34 MCHC 32.4 g/dL (33.0-35.0) L 08/13/19 05:34 RDW 17.6 % (11.6-16.5) H 08/13/19 05:34 Plt Count 170 X10^3/uL (150.0-450.0) 08/13/19 05:34 Plt Count Comment Adequate (ADEQUATE) 08/13/19 05:34 MPV 7.8 fL (7.4-11.0) 08/13/19 05:34 Neut % (Auto) 71.1 % (42.0-75.0) 08/13/19 05:34 Lymph % (Auto) 16.0 % (21.0-51.0) L 08/13/19 05:34 [place] % (Auto) 11.0 % (0.0-13.0) 08/13/19 05:34 Eos % (Auto) 1.2 % (0.9-2.9) 08/13/19 05:34 Baso % (Auto) 0.7 % (0.2-1.0) 08/13/19 05:34 Neut # (Auto) 2.8 x10^3/uL (2.2-4.8) 08/13/19 05:34 Lymph # (Auto) 0.6 X10^3/uL (1.3-2.9) L 08/13/19 05:34 [place] # (Auto) 0.4 x10^3/uL (0.3-0.8) 08/13/19 05:34 Eos # (Auto) 0.0 x10^3/uL (0.0-0.2) 08/13/19 05:34 Baso # (Auto) 0.0 X10^3/uL (0.0-0.1) 08/13/19 05:34 Absolute Nucleated RBC 0.0 /100WBC 08/13/19 05:34 Plt Morphology Comment Normal (NORMAL) 08/13/19 05:34 RBC Morphology Abnormal (NORMAL) 08/13/19 05:34 Hypochromasia Slight A 08/13/19 05:34 Anisocytosis Slight A 08/12/19 05:34 PT 40.1 SECONDS (11.8-14.3) 08/13/19 05:34 INR Target Range - 08/13/19 05:34 INR 4.31 (0.8-1.3) H 08/13/19 05:34 APTT 44.8 SECONDS (22.9-36.5) H 08/09/19 13:07 PTT Comment - 08/09/19 13:07 Sodium 138 mmol/L (136-145) 08/13/19 05:34 Corrected Sodium 142 mmol/L (136-145) 08/13/19 05:34 Potassium 5.1 mmol/L (3.5-5.1) 08/13/19 05:34 Chloride 102 mmol/L (98-107) 08/13/19 05:34 Carbon Dioxide 30.4 mmol/L (21-32) 08/13/19 05:34 BUN 47 mg/dL (7-18) H 08/13/19 05:34 Creatinine 2.37 mg/dL (0.70-1.30) H 08/13/19 05:34 Est GFR (MDRD) Af Amer 35 (>60) L 08/13/19 05:34 Est GFR (MDRD) Non-Af 29 (>60) L 08/13/19 05:34 Glucose 285 mg/dL (65-99) H 08/13/19 05:34 POC Glucose (mg/dL) 161 mg/dL (65-99) H 08/12/19 02:17 Calcium 9.4 mg/dL (8.5-10.1) 08/13/19 05:34 Corrected Calcium 10.4 mg/dL (8.5-10.1) H 08/13/19 05:34 Total Bilirubin 0.50 mg/dL (0.2-1.0) 08/13/19 05:34 AST 13 Units/L (15-37) L 08/13/19 05:34 ALT 19 Units/L (12-78) 08/13/19 05:34 Alkaline Phosphatase 115 Units/L (46-116) 08/13/19 05:34 Creatine Kinase 124 Units/L (39-308) 08/09/19 20:28 CK-MB (CK-2) 1.7 ng/mL (0-4.0) 08/09/19 20:28 CK/CKMB % Calc 1.4 % (<4) 08/09/19 20:28 Troponin I 0.03 ng/mL (0-1.5) 08/09/19 20:28 B-Natriuretic Peptide 1630 pg/mL (0-79) H* 08/10/19 05:53 Total Protein 6.4 g/dL (6.4-8.2) 08/13/19 05:34 Albumin 2.8 g/dL (3.4-5.0) L 08/13/19 05:34 Globulin 3.6 g/dL (2.5-4.5) 08/13/19 05:34 Albumin/Globulin Ratio 0.8 Ratio (1.1-2.1) L 08/13/19 05:34 - Plan (1) Pneumonia Status: Acute Qualifiers: Pneumonia type: due to unspecified organism Laterality: right Lung location: lower lobe of lung Plan: IV FORTAZ, IV LEVAQUIN, RESPIRATORY TX, SUPPLEMENAL OXYGEN, CONTINUE TO MONITOR (2) Congestive heart failure Status: Acute Qualifiers: Heart failure chronicity: acute on chronic Plan: IV LASIX, BIPAP, RESPIRATORY TX, SUPPLEMENTAL OXYGEN, CONTINUE TO MONITOR (3) Chest pain, rule out acute myocardial infarction Status: Resolved Plan: CONTINUE TO MONITOR (4) Chronic kidney disease Status: Chronic Qualifiers: Chronic kidney disease stage: unspecified stage Qualified Code(s): N18.9 - Chronic kidney disease, unspecified Plan: CONTINUE TO MONITOR
[2019-08-14] MEDS: NS 1000 ML 1,000 ML IV SCH (01:37)
[2019-08-14] MEDS: HumuLIN R SUBCUT PRN ×5 (06:12→20:12)
--- NOTE | 2019-08-14 06:29 | RAD ---
HISTORYFollow-up pneumoniaSTUDYCHEST, 1 [id number] is a pacemaker present on the left. The patient is status post median sternotomy and valve replacement. The heart is enlarged. No congestive heart failure is noted. Right lower lobe lung infiltrate is unchanged. Remainder of the lung ross are clear. Bony thorax is unremarkable.IMPRESSIONNo change right lower lobe lung infiltrateNo change cardiomegaly without congestive heart failureElectronically signed by: RICHARD CRYSTAL (Aug 14, 2019 06:28:41)
[2019-08-14 06:35] LABS: BASOPHILS % (AUTO) 0.4 % (0.2-1.0); EOSINOPHILS % (AUTO) 0.8 % (0.9-2.9); HEMATOCRIT 32.6 % (42.0-54.0); HEMOGLOBIN 10.7 g/dL (13.5-18.0); LYMPHOCYTES # (AUTO) 0.5 X10^3/uL (1.3-2.9); LYMPHOCYTES % (AUTO) 12.9 % (21.0-51.0); MEAN CORPUSCULAR HEMOGLOBIN 26.1 pg (27.0-34.0); MEAN CORPUSCULAR HGB CONC 32.8 g/dL (33.0-35.0); MEAN CORPUSCULAR VOLUME 79.5 fL (80.0-100.0); MEAN PLATELET VOLUME 8.1 fL (7.4-11.0); MONOCYTES # (AUTO) 0.4 x10^3/uL (0.3-0.8); MONOCYTES % (AUTO) 10.8 % (0.0-13.0); NEUTROPHILS % (AUTO) 75.1 % (42.0-75.0); PLATELET COUNT 176 X10^3/uL (150.0-450.0); RED CELL DISTRIBUTION WIDTH 17.4 % (11.6-16.5)
[2019-08-14 06:42] LABS: ALBUMIN 2.6 g/dL (3.4-5.0); CALCIUM 9.2 mg/dL (8.5-10.1); CARBON DIOXIDE 31.4 mmol/L (21-32); COR CA(FOR HYPOALB) 10.3 mg/dL (8.5-10.1); CREATININE 2.47 mg/dL (0.70-1.30); TOTAL PROTEIN 6.2 g/dL (6.4-8.2)
[2019-08-14] MEDS: LEVAQUIN PREMIX IV 250 MG 250 MG/50 ML BAG IV SCH (08:44)
[2019-08-14] MEDS: SYNTHROID 112 mcg TAB PO SCH (08:47)
[2019-08-14] MEDS: TAMIFLU PO SCH (08:48)
[2019-08-14] MEDS: COREG TAB 25 MG PO SCH ×2 (08:48→20:11)
[2019-08-14] MEDS: PREDNISONE TAB 10 MG PO SCH (08:48)
[2019-08-14] MEDS: ZETIA TAB 10 MG PO SCH (08:48)
[2019-08-14] MEDS: K-DUR TAB 20 MEQ PO SCH (08:49)
[2019-08-14] MEDS: GENTAMICIN TOPICAL CRM TOP SCH (09:01)
[2019-08-14] MEDS: PATIENT'S HOME MEDICATION PO SCH ×2 (09:02→20:11)
[2019-08-14] MEDS: DUONEB 0.5 MG/3 MG (3 mL) NEB SCH ×4 (09:11→20:20)
[2019-08-14] MEDS: DIFLUCAN 200 MG IV PREMIX* 100 MG/50 ML BAG IV SCH (09:43)
[2019-08-14] MEDS: FORTAZ or TAZICEF VIAL INJ 2 G in NS 100 ML IV + SPIKE MINIBAG* 100 ML IV SCH (11:30)
[2019-08-14] MEDS: TOUJEO SOLOSTAR PEN SC SCH (11:44)
--- NOTE | 2019-08-14 19:29 | PCM.PROG ---
Progress Note - Progress Note for Day of Date of Exam: 08/14/19 - Subjective Subjective: IS BEING TREATED FOR ACUTE CHF EXACERBATION AND PNEUMONIA. TODAY, HE IS ALERT AND ORIENTED, LYING IN BED ON MORNING ROUNDS. HE CONTINUES WITH COMPLAINTS OF COUGH AND SHORTNESS OF BREATH TODAY. LOWER EXTREMITIES ARE NOTED WITH 2+ PITTING EDEMA. HE DENIES CHEST PAIN THIS MORNING. ON EXAMINATION, HEART IS REGULAR IN RATE AND RHYTHM. BILATERAL LUNGS ARE NOTED WITH SCATTERED WHEEZING THROUGHOUT. ABDOMEN IS ROUND, SOFT, AND NON-TENDER WITH NORMAL BOWEL SOUNDS NOTED IN ALL QUADRANTS. HIS VITALS THIS MORNING ARE: 97.76-75-20-93%NC-140/72. LABS WERE OBTAINED. ABNORMAL LAB VALUES INCLUDE THE FOLLOWING: RBC 4.10, HGB 10.7, HCT 32.6, INR 5.84, POTASSIUM 5.4, BUN 52, CREATININE 2.47, GLUCOSE 355, ALK PHOS 122, TOTAL PROTEIN 6.2, ALBUMIN 2.6. A CHEST XRAY WAS OBTAINED AND REVEALED: No change right lower lobe lung infiltrate. No change cardiomegaly without congestive heart failure. BLOOD AND SPUTUM CULTURES WERE OBTAINED. HE IS CURRENTLY RECEIVING IV FLUIDS, IV FORTAZ, IV LEVAQUIN, AND DIFLUCAN, RESPIRATORY TX, SUPPLEMENTAL OXYGEN, TAMIFLU, HUMULIN R SLIDIDNG SCALE, AND HIS PO HOME MEDICATIONS. WE WILL CONTINUE WITH CURRENT PLAN OF CARE TODAY AND RESUME HIS TOUJEO. WE WILL HOLD THE COUMADIN. OTHERWISE, WE WILL FOLLOW UP WITH AM LABS AND CHEST XRAY AND CONTINUE TO MONITOR. - Past Medical Family Social History Past Med/Fam/Surg Hx: No changes since H&P Allergies: Allergies atorvastatin [From Lipitor] Allergy (Verified 08/09/19 13:35) codeine Allergy (Verified 08/09/19 13:35) - Review of Systems ROS: No change since H&P - Vital Signs and I&O's Vital Signs: Temperature 98.2 F Pulse Rate [Right Brachial] 58 Pulse Rate [Left Brachial] 75 Pulse Rate 89 Respiratory Rate 30 Blood Pressure [Right Arm] 140/72 Blood Pressure [Left Arm] 142/67 O2 Sat by Pulse Oximetry 92 Intake and Output: Intake & Output 08/12/19 08/13/19 08/14/19 08/15/19 11:59 11:59 11:59 11:59 Intake Total 840 / 840 640 / 640 3216 / 3216 820 / 820 Output Total 1300 / 1300 1150 / 1150 1950 / 1950 750 / 750 Balance -460 / -460 -510 / -510 1266 / 1266 70 / 70 - Physical Exam Oriented: Normal Eyes: Normal Ear: Normal Nose: Normal Throat: Normal Respiratory: Generalized, Diminished Cardiovascular: Edema (2+ PITTING EDEMA TO LOWER EXTREMITIES ) : Normal Auscultation: Bowel Sounds: Normal Palpation: Normal Tenderness: Normal Skin: Normal Musculoskeletal: Normal Psychiatric: Normal Mood Description: Calm Affect: Normal Speech Pattern: Clear, Appropriate - Laboratory and Diagnostics Result Diagrams: 08/14/19 05:52 08/14/19 05:52 Labs: 08/12/19 09:44 Blood Blood Culture - Preliminary 08/12/19 09:35 Blood Blood Culture - Preliminary 08/12/19 16:59 Sputum - Expectorated Sputum Sputum Culture - Final 08/12/19 16:59 Sputum - Expectorated Sputum - Final Laboratory WBC 4.0 X10^3/uL (3.6-10.0) 08/14/19 05:52 RBC 4.10 X10^6/uL (4.7-6.0) L 08/14/19 05:52 Hgb 10.7 g/dL (13.5-18.0) L 08/14/19 05:52 Hct 32.6 % (42.0-54.0) L 08/14/19 05:52 MCV 79.5 fL (80.0-100.0) L 08/14/19 05:52 MCH 26.1 pg (27.0-34.0) L 08/14/19 05:52 MCHC 32.8 g/dL (33.0-35.0) L 08/14/19 05:52 RDW 17.4 % (11.6-16.5) H 08/14/19 05:52 Plt Count 176 X10^3/uL (150.0-450.0) 08/14/19 05:52 Plt Count Comment Adequate (ADEQUATE) 08/13/19 05:34 MPV 8.1 fL (7.4-11.0) 08/14/19 05:52 Neut % (Auto) 75.1 % (42.0-75.0) H 08/14/19 05:52 Lymph % (Auto) 12.9 % (21.0-51.0) L 08/14/19 05:52 [place] % (Auto) 10.8 % (0.0-13.0) 08/14/19 05:52 Eos % (Auto) 0.8 % (0.9-2.9) L 08/14/19 05:52 Baso % (Auto) 0.4 % (0.2-1.0) 08/14/19 05:52 Neut # (Auto) 3.0 x10^3/uL (2.2-4.8) 08/14/19 05:52 Lymph # (Auto) 0.5 X10^3/uL (1.3-2.9) L 08/14/19 05:52 [place] # (Auto) 0.4 x10^3/uL (0.3-0.8) 08/14/19 05:52 Eos # (Auto) 0.0 x10^3/uL (0.0-0.2) 08/14/19 05:52 Baso # (Auto) 0.0 X10^3/uL (0.0-0.1) 08/14/19 05:52 Absolute Nucleated RBC 0.1 /100WBC 08/14/19 05:52 Plt Morphology Comment Normal (NORMAL) 08/13/19 05:34 RBC Morphology Abnormal (NORMAL) 08/13/19 05:34 Hypochromasia Slight A 08/13/19 05:34 Anisocytosis Slight A 08/12/19 05:34 PT 50.8 SECONDS (11.8-14.3) 08/14/19 05:52 INR Target Range - 08/14/19 05:52 INR 5.84 (0.8-1.3) H* 08/14/19 05:52 APTT 44.8 SECONDS (22.9-36.5) H 08/09/19 13:07 PTT Comment - 08/09/19 13:07 Sodium 138 mmol/L (136-145) 08/14/19 05:52 Corrected Sodium 144 mmol/L (136-145) 08/14/19 05:52 Potassium 5.4 mmol/L (3.5-5.1) H 08/14/19 05:52 Chloride 103 mmol/L (98-107) 08/14/19 05:52 Carbon Dioxide 31.4 mmol/L (21-32) 08/14/19 05:52 BUN 52 mg/dL (7-18) H 08/14/19 05:52 Creatinine 2.47 mg/dL (0.70-1.30) H 08/14/19 05:52 Est GFR (MDRD) Af Amer 33 (>60) L 08/14/19 05:52 Est GFR (MDRD) Non-Af 27 (>60) L 08/14/19 05:52 Glucose 355 mg/dL (65-99) H 08/14/19 05:52 POC Glucose (mg/dL) 161 mg/dL (65-99) H 08/12/19 02:17 Calcium 9.2 mg/dL (8.5-10.1) 08/14/19 05:52 Corrected Calcium 10.3 mg/dL (8.5-10.1) H 08/14/19 05:52 Total Bilirubin 0.40 mg/dL (0.2-1.0) 08/14/19 05:52 AST 16 Units/L (15-37) 08/14/19 05:52 ALT 19 Units/L (12-78) 08/14/19 05:52 Alkaline Phosphatase 122 Units/L (46-116) H 08/14/19 05:52 Creatine Kinase 124 Units/L (39-308) 08/09/19 20:28 CK-MB (CK-2) 1.7 ng/mL (0-4.0) 08/09/19 20:28 CK/CKMB % Calc 1.4 % (<4) 08/09/19 20:28 Troponin I 0.03 ng/mL (0-1.5) 08/09/19 20:28 B-Natriuretic Peptide 1630 pg/mL (0-79) H* 08/10/19 05:53 Total Protein 6.2 g/dL (6.4-8.2) L 08/14/19 05:52 Albumin 2.6 g/dL (3.4-5.0) L 08/14/19 05:52 Globulin 3.6 g/dL (2.5-4.5) 08/14/19 05:52 Albumin/Globulin Ratio 0.7 Ratio (1.1-2.1) L 08/14/19 05:52 - Plan (1) Pneumonia Status: Acute Qualifiers: Pneumonia type: due to unspecified organism Laterality: right Lung location: lower lobe of lung Plan: IV FORTAZ, IV LEVAQUIN, RESPIRATORY TX, SUPPLEMENAL OXYGEN, CONTINUE TO MONITOR (2) Congestive heart failure Status: Acute Qualifiers: Heart failure chronicity: acute on chronic Plan: BIPAP, RESPIRATORY TX, SUPPLEMENTAL OXYGEN, CONTINUE TO MONITOR (3) Chest pain, rule out acute myocardial infarction Status: Resolved Plan: CONTINUE TO MONITOR (4) Chronic kidney disease Status: Chronic Qualifiers: Chronic kidney disease stage: unspecified stage Qualified Code(s): N18.9 - Chronic kidney disease, unspecified Plan: CONTINUE TO MONITOR (5) Diabetes mellitus, type 2 Status: Chronic Qualifiers: Diabetes 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
[2019-08-14] MEDS ORDERED: SNACK - Diabetic Appropriate PO SCH (20:00)
[2019-08-14] MEDS: SNACK - Diabetic Appropriate PO SCH (20:11)
[2019-08-15] MEDS: NS 1000 ML 1,000 ML IV SCH (05:38)
[2019-08-15] MEDS: HumuLIN R SUBCUT PRN (05:56)
--- NOTE | 2019-08-15 06:19 | RAD ---
HISTORYShortness of breathSTUDYCHEST, 1 [id number] is rotated to the left. There is a pacemaker present on the left. The patient is status post median sternotomy and CABG. The heart remains enlarged. No congestive heart failure is noted. Right lower lobe lung infiltrate unchanged. Likely a small right pleural effusion is present. Remainder of the lung ross are clear. Bony thorax is unremarkable.IMPRESSIONNo change right lower lobe infiltrateCardiomegaly without congestive heart failure, stableElectronically signed by: RICHARD CRYSTAL (Aug 15, 2019 06:17:30)
[2019-08-15 06:57] LABS: BASOPHILS % (AUTO) 0.5 % (0.2-1.0); EOSINOPHILS % (AUTO) 0.6 % (0.9-2.9); HEMATOCRIT 33.2 % (42.0-54.0); HEMOGLOBIN 10.8 g/dL (13.5-18.0); LYMPHOCYTES # (AUTO) 0.5 X10^3/uL (1.3-2.9); LYMPHOCYTES % (AUTO) 13.4 % (21.0-51.0); MEAN CORPUSCULAR HEMOGLOBIN 25.8 pg (27.0-34.0); MEAN CORPUSCULAR HGB CONC 32.7 g/dL (33.0-35.0); MEAN PLATELET VOLUME 7.9 fL (7.4-11.0); MONOCYTES # (AUTO) 0.4 x10^3/uL (0.3-0.8); MONOCYTES % (AUTO) 10.9 % (0.0-13.0); NEUTROPHILS % (AUTO) 74.6 % (42.0-75.0); PLATELET COUNT 183 X10^3/uL (150.0-450.0); RED CELL DISTRIBUTION WIDTH 17.5 % (11.6-16.5)
[2019-08-15 07:28] LABS: ALBUMIN 2.7 g/dL (3.4-5.0); CALCIUM 9.4 mg/dL (8.5-10.1); CARBON DIOXIDE 28.7 mmol/L (21-32); COR CA(FOR HYPOALB) 10.4 mg/dL (8.5-10.1); CREATININE 2.38 mg/dL (0.70-1.30); TOTAL PROTEIN 6.5 g/dL (6.4-8.2)
[2019-08-15 07:38] LABS: PLATELET MORPHOLOGY COMMENT NORMAL (NORMAL)
[2019-08-15] MEDS: DIFLUCAN 200 MG IV PREMIX* 100 MG/50 ML BAG IV SCH (09:09)
[2019-08-15] MEDS: PATIENT'S HOME MEDICATION PO SCH (09:11)
[2019-08-15] MEDS: TOUJEO SOLOSTAR PEN SC SCH (09:11)
[2019-08-15] MEDS: COREG TAB 25 MG PO SCH (09:12)
[2019-08-15] MEDS: SYNTHROID 112 mcg TAB PO SCH (09:12)
[2019-08-15] MEDS: TAMIFLU PO SCH (09:13)
[2019-08-15] MEDS: K-DUR TAB 20 MEQ PO SCH (09:13)
[2019-08-15] MEDS: PREDNISONE TAB 10 MG PO SCH (09:13)
[2019-08-15] MEDS: ZETIA TAB 10 MG PO SCH (09:13)
[2019-08-15] MEDS: DUONEB 0.5 MG/3 MG (3 mL) NEB SCH (09:14)
[2019-08-15] MEDS: GENTAMICIN TOPICAL CRM TOP SCH (09:14)
[2019-08-15] MEDS: LEVAQUIN PREMIX IV 250 MG 250 MG/50 ML BAG IV SCH (10:29)
[2019-08-15] MEDS: FORTAZ or TAZICEF VIAL INJ 2 G in NS 100 ML IV + SPIKE MINIBAG* 100 ML IV SCH (11:31)
--- NOTE | 2019-08-15 11:42 | PCM.PROG ---
Progress Note - Progress Note for Day of Date of Exam: 08/15/19 - Subjective Subjective: PATIENT WILL BE DISCHARGED HOME IN A CHRONIC, STABLE STATE. NEB TREATMENTS HAVE BEEN USED, HOWEVER, OXYGEN SATURATIONS CONTINUE DROP WITHOUT OXYGEN VIA NASAL CANNULA. OXYGEN SATURATIONS FELL TO 87 DURING 6 MINUTE WALK TEST WITHOUT OXYGEN. WE WILL DISCHARGE PATIENT WITH HOME . - Past Medical Family Social History Past Med/Fam/Surg Hx: No changes since H&P Allergies: Allergies atorvastatin [From Lipitor] Allergy (Verified 08/09/19 13:35) codeine Allergy (Verified 08/09/19 13:35) - Review of Systems ROS: No change since H&P - Vital Signs and I&O's Vital Signs: Temperature 97.8 F Pulse Rate [Right Brachial] 72 Pulse Rate [Left Brachial] 75 Pulse Rate 74 Respiratory Rate 20 Blood Pressure [Right Arm] 119/61 Blood Pressure [Left Arm] 142/67 O2 Sat by Pulse Oximetry 84 Intake and Output: Intake & Output 08/12/19 08/13/19 08/14/19 08/15/19 11:59 11:59 11:59 11:59 Intake Total 840 / 840 640 / 640 3216 / 3216 2680 / 2680 Output Total 1300 / 1300 1150 / 1150 1950 / 1950 1350 / 1350 Balance -460 / -460 -510 / -510 1266 / 1266 1330 / 1330 - Physical Exam Oriented: Normal Eyes: Normal Ear: Normal Nose: Normal Throat: Normal Respiratory: Generalized, Diminished Cardiovascular: Edema (2+ PITTING EDEMA TO LOWER EXTREMITIES ) : Normal Auscultation: Bowel Sounds: Normal Tenderness: Normal Skin: Normal Musculoskeletal: Normal Psychiatric: Normal Mood Description: Calm Affect: Normal Speech Pattern: Clear, Appropriate - Laboratory and Diagnostics Result Diagrams: 08/15/19 06:03 08/15/19 06:03 Labs: 08/12/19 09:44 Blood Blood Culture - Preliminary 08/12/19 09:35 Blood Blood Culture - Preliminary 08/12/19 16:59 Sputum - Expectorated Sputum Sputum Culture - Final 08/12/19 16:59 Sputum - Expectorated Sputum - Final Laboratory WBC 4.0 X10^3/uL (3.6-10.0) 08/15/19 06:03 RBC 4.20 X10^6/uL (4.7-6.0) L 08/15/19 06:03 Hgb 10.8 g/dL (13.5-18.0) L 08/15/19 06:03 Hct 33.2 % (42.0-54.0) L 08/15/19 06:03 MCV 79.0 fL (80.0-100.0) L 08/15/19 06:03 MCH 25.8 pg (27.0-34.0) L 08/15/19 06:03 MCHC 32.7 g/dL (33.0-35.0) L 08/15/19 06:03 RDW 17.5 % (11.6-16.5) H 08/15/19 06:03 Plt Count 183 X10^3/uL (150.0-450.0) 08/15/19 06:03 Plt Count Comment Adequate (ADEQUATE) 08/15/19 06:03 MPV 7.9 fL (7.4-11.0) 08/15/19 06:03 Neut % (Auto) 74.6 % (42.0-75.0) 08/15/19 06:03 Lymph % (Auto) 13.4 % (21.0-51.0) L 08/15/19 06:03 Kay % (Auto) 10.9 % (0.0-13.0) 08/15/19 06:03 Eos % (Auto) 0.6 % (0.9-2.9) L 08/15/19 06:03 Baso % (Auto) 0.5 % (0.2-1.0) 08/15/19 06:03 Neut # (Auto) 3.0 x10^3/uL (2.2-4.8) 08/15/19 06:03 Lymph # (Auto) 0.5 X10^3/uL (1.3-2.9) L 08/15/19 06:03 Kay # (Auto) 0.4 x10^3/uL (0.3-0.8) 08/15/19 06:03 Eos # (Auto) 0.0 x10^3/uL (0.0-0.2) 08/15/19 06:03 Baso # (Auto) 0.0 X10^3/uL (0.0-0.1) 08/15/19 06:03 Absolute Nucleated RBC 0.1 /100WBC 08/15/19 06:03 Plt Morphology Comment Normal (NORMAL) 08/15/19 06:03 RBC Morphology Normal (NORMAL) 08/15/19 06:03 Hypochromasia Slight A 08/13/19 05:34 Anisocytosis Slight A 08/12/19 05:34 PT 48.0 SECONDS (11.8-14.3) 08/15/19 06:03 INR Target Range - 08/15/19 06:03 INR 5.43 (0.8-1.3) H* 08/15/19 06:03 APTT 44.8 SECONDS (22.9-36.5) H 08/09/19 13:07 PTT Comment - 08/09/19 13:07 Sodium 139 mmol/L (136-145) 08/15/19 06:03 Corrected Sodium 142 mmol/L (136-145) 08/15/19 06:03 Potassium 5.4 mmol/L (3.5-5.1) H 08/15/19 06:03 Chloride 104 mmol/L (98-107) 08/15/19 06:03 Carbon Dioxide 28.7 mmol/L (21-32) 08/15/19 06:03 BUN 50 mg/dL (7-18) H 08/15/19 06:03 Creatinine 2.38 mg/dL (0.70-1.30) H 08/15/19 06:03 Est GFR (MDRD) Af Amer 34 (>60) L 08/15/19 06:03 Est GFR (MDRD) Non-Af 28 (>60) L 08/15/19 06:03 Glucose 238 mg/dL (65-99) H 08/15/19 06:03 POC Glucose (mg/dL) 161 mg/dL (65-99) H 08/12/19 02:17 Calcium 9.4 mg/dL (8.5-10.1) 08/15/19 06:03 Corrected Calcium 10.4 mg/dL (8.5-10.1) H 08/15/19 06:03 Total Bilirubin 0.40 mg/dL (0.2-1.0) 08/15/19 06:03 AST 15 Units/L (15-37) 08/15/19 06:03 ALT 22 Units/L (12-78) 08/15/19 06:03 Alkaline Phosphatase 116 Units/L (46-116) 08/15/19 06:03 Creatine Kinase 124 Units/L (39-308) 08/09/19 20:28 CK-MB (CK-2) 1.7 ng/mL (0-4.0) 08/09/19 20:28 CK/CKMB % Calc 1.4 % (<4) 08/09/19 20:28 Troponin I 0.03 ng/mL (0-1.5) 08/09/19 20:28 B-Natriuretic Peptide 1630 pg/mL (0-79) H* 08/10/19 05:53 Total Protein 6.5 g/dL (6.4-8.2) 08/15/19 06:03 Albumin 2.7 g/dL (3.4-5.0) L 08/15/19 06:03 Globulin 3.8 g/dL (2.5-4.5) 08/15/19 06:03 Albumin/Globulin Ratio 0.7 Ratio (1.1-2.1) L 08/15/19 06:03 - Plan (1) Pneumonia Status: Acute Qualifiers: Pneumonia type: due to unspecified organism Laterality: right Lung location: lower lobe of lung Plan: IV FORTAZ, IV LEVAQUIN, RESPIRATORY TX, SUPPLEMENAL OXYGEN, CONTINUE TO MONITOR (2) Congestive heart failure Status: Acute Qualifiers: Heart failure chronicity: acute on chronic Plan: BIPAP, RESPIRATORY TX, SUPPLEMENTAL OXYGEN, CONTINUE TO MONITOR (3) Chest pain, rule out acute myocardial infarction Status: Resolved Plan: CONTINUE TO MONITOR (4) Chronic kidney disease Status: Chronic Qualifiers: Chronic kidney disease stage: unspecified stage Qualified Code(s): N18.9 - Chronic kidney disease, unspecified Plan: CONTINUE TO MONITOR (5) Diabetes mellitus, type 2 Status: Chronic Qualifiers: Diabetes mellitus detention insulin use: with manager long term care use Diabetes mellitus complication status: without complication Qualified Code(s): E11.9 - Type 2 diabetes mellitus without complications; Z79.4 - intermediate project manager (current) use of insulin Plan: TOUJEO 40 UNITS SC DAILY, HUMULIN R SLIDING SCALE, CONTINUE TO MONITOR
[2019-08-15 12:03] VITALS: BP 157/71
[2019-08-15] MEDS ORDERED: PREVNAR 13 IM ONE (12:45)
== END 2019-08-15 13:00 | disposition home health service (06) | DRG 291 ==
LOC: MED/SURG 12:34
PROVIDERS: ADMIT Internal Medicine; ATTEND Internal Medicine
CPT/HCPCS: 36415; 71010; 71020; 71045; 71046; 80053; 82550; 82553; 82947; 83880; 84484; 85025; 85610; 85730; 87040; 87070; 87205; 90670; 93005; 94640; 94660; 94760; A4222; A4618; A7030; G9035; J0696; J0713; J1450; J1815; J1940; J1956; J3490; J7030; J7050; J7512; J7620